=== PATIENT | female | born 1965 | race Caucasian/White ===

== ENCOUNTER → 2018-03-09 14:39 | Outpatient (CLI) | payer OTHER, SELFPAY ==
--- NOTE | 2018-03-09 15:16 | BI_ITS ---
MAMMOGRAPHY - BILATERAL SCREENING 3-D ROSIE SYNTHESIS REASON FOR EXAM: Female, 53 years old. Bilateral Screening 3-D tomosynthesis PERTINENT HISTORY: Asymptomatic. No significant family history. TECHNIQUE: 2-D mammograms and 3-D Rosie synthesis of the breast (s) were performed. CAD was performed. COMPARISON: 02/06/2017, 03/14/2015. FINDINGS: The breast composition is heterogeneously dense that can obscure small breast masses. Scattered benign calcifications are seen. No dense spiculated dominant masses or suspicious microcalcification cluster are identified. No new architectural distortion, asymmetric density, adenopathy, skin thickening or nipple retraction identified. There has been no significant change since the most recent prior study identified. BI/SCREENING MAMM (CAD), BILAT IMPRESSION: No mammographic sign of malignancy. Routine yearly mammograms recommended. ASSESSMENT CATEGORY: BIRADS Category 2: Benign. A letter regarding these results will be sent to the patient by the facility within 30 days. FOLLOW UP RECOMMENDATION: Yearly follow up mammogram recommended. (A) Any palpable lesion if present should be followed based on clinical grounds and biopsy performed if clinically persistent for 3 months or increasing size. Approximately 10% of breast cancers are not detected by mammography. A normal mammogram should not delay biopsy of a clinically suspicious abnormality. Dense breast tissue may obscure neoplasm. Electronically Signed: Miguel A Sultana, at 17:31 EDT Tel , Service support ,
== END ==
PROVIDERS: Visit Provider Obstetrics & Gynecology
DX: Z12.31 Encounter for screening mammogram for malignant neoplasm of breast (principal)
CPT/HCPCS: 77063; 77067

== ENCOUNTER → 2018-04-20 07:55 | Outpatient (CLI) | payer OTHER, SELFPAY ==
[2018-04-19 14:29] VITALS: BMI 34.4
[2018-04-20 08:44] LABS: Absolute Lymphocyte Count 2.15 X10^3/ul (0.83-4.51); Absolute Neutrophil Count 5.1 X10^3/uL (2.0-7.7); Basophil# 0.04 X10^3/uL; Basophil% 0.5 % (0-1); Eosinophil# 0.31 X10^3/uL; Eosinophils% 3.9 % (0-5); Hematocrit 44.9 % (37-47); Hemoglobin 15.2 g/dl (12.0-15.0); Lymphocyte # 2.15 X10^3/ul (4.0); Lymphocyte % 26.7 % (19-41); Mean Corp Hgb Conc 33.9 g/gl (32-36); Mean Corpuscular Hgb 31.5 pg (27.0-32.0); Mean Platelet Vol. 11.3 fl (6.2-12.0); Neutrophil # 5.14 X10^3/uL (2.7-7.7); Neutrophil % 63.8 % (47-70); Platelet Count 264 K/mm3 (150-450); RBC Distribution Width CV 13.1 % (11.6-14.6); RBC Distribution Width SD 44.6 fl (35.1-43.9); Red Blood Count 4.83 M/mm3 (4.2-5.4); White Blood Count 8.1 K/mm3 (4.4-11.0)
[2018-04-20 08:49] LABS: POSITIVE COUNT NO; POSITIVE DIFFERENTIAL NO; POSITIVE MORPHOLOGY NO
[2018-04-20 09:11] LABS: ALB/GLOB Ratio 1.1 RATIO (0.9-2.4); AST(SGOT) 19 U/L (15-37); Alanine Aminotransfer ALT/SGPT 32 U/L (13-56); Alkaline Phosphatase 100 U/L (45-117); Anion Gap 11 (5-15); BUN 14 mg/dL (7-18); BUN/Creat Ratio 20.2 RATIO (10-20); Calcium,Total 9.1 mg/dL (8.5-10.1); Chloride 105 mmol/L (98-107); Cholesterol 195 mg/dL (200); Creatinine, Serum 0.69 mg/dL (0.55-1.02); EST Glomerular Filtration Rate 93 mL/min (>60); Est Glom Filt Rate - Afr Amer 113 mL/min (>60); Globulin 3.8 g/dL (2.2-4.2); Glucose 102 mg/dL (74-106); High Density Lipoprotein 60 mg/dL; Potassium 3.8 mmol/L (3.5-5.1); Protein, Total 7.8 g/dL (6.4-8.2); Sodium Level 140 mmol/L (136-145); Thyroid Stim Hormone (TSH) 1.41 uIU/mL (0.358-3.74); Triglycerides 93 mg/dL; Very Low Density Lipoprotein 19 mg/dL (5-40)
== END ==
PROVIDERS: Family Provider Internal Medicine; PCP Internal Medicine; Referring Provider Internal Medicine; Visit Provider Internal Medicine
DX: I10 Essential (primary) hypertension (principal)
CPT/HCPCS: 36415; 80053; 80061; 84443; 85025

== ENCOUNTER → 2019-03-28 08:39 | Outpatient (CLI) | payer OTHER, SELFPAY ==
[2018-07-19 08:32] VITALS: BMI 34.4
--- NOTE | 2019-03-28 08:44 | BI_ITS ---
MAMMOGRAPHY - BILATERAL SCREENING REASON FOR EXAM: Female, 54 years old. Routine annual screening examination. PERTINENT HISTORY: Non-contributory. TECHNIQUE: Digital bilateral breast rosie (3D mammographic acquisition) in the CC and MLO projections. 2-D mediolateral oblique (MLO) and craniocaudad (CC) views of both breasts were obtained. CAD: Full Field Digital Mammography with Computer Added Detection was performed. COMPARISON: Comparison is made with prior study dated March 09, 2018 and February 06, 2017. FINDINGS: Breast Composition: The breasts are heterogeneously dense, which may obscure small masses. There are no dominant masses or suspicious calcifications. Stable benign-appearing bilateral axillary lymph nodes. No other significant abnormalities are identified. There has been no significant change since the prior study. BI/SCREEN MAMM (CAD) W/ROSIE BILAT IMPRESSION: Stable bilateral screening mammogram. Yearly follow-up mammogram recommended. (A) ASSESSMENT CATEGORY: BIRADS Category 2: Benign. A letter regarding these results will be sent to the patient by the facility within 30 days. Approximately 10% of breast cancers are not detected by mammography. A normal mammogram should not delay biopsy of a clinically suspicious abnormality. [id number] Electronically Signed: Mykel Sepulveda, at 10:24 EDT , Service support ,
== END ==
PROVIDERS: Family Provider Internal Medicine; PCP Internal Medicine; Referring Provider Obstetrics & Gynecology; Visit Provider Obstetrics & Gynecology
DX: Z12.31 Encounter for screening mammogram for malignant neoplasm of breast (principal)
CPT/HCPCS: 77063; 77067

== ENCOUNTER → 2020-03-29 12:42 | Outpatient (CLI) | payer OTHER, SELFPAY ==
[2019-03-28 10:07] VITALS: BMI 34.4
--- NOTE | 2020-03-29 12:43 | BI_ITS ---
MAMMOGRAPHY - BILATERAL SCREENING REASON FOR EXAM: Female, 55 years old. Routine annual screening examination. PERTINENT HISTORY: Non-contributory. TECHNIQUE: Digital bilateral breast rosie (3D mammographic acquisition) in the CC and MLO projections. 2-D mediolateral oblique (MLO) and craniocaudad (CC) views of both breasts were obtained. CAD: Full Field Digital Mammography with Computer Added Detection was performed. COMPARISON: Comparison is made with prior study dated 03/28/2019 and 03/09/2018. FINDINGS: Breast Composition: The breasts are heterogeneously dense, which may obscure small masses. There are no dominant masses or suspicious calcifications. Stable small benign-appearing bilateral axillary lymph nodes. No other significant abnormalities are identified. There has been no significant change since the prior study. BI/SCREEN MAMM (CAD) W/ROSIE BILAT IMPRESSION: Stable bilateral screening mammogram. Yearly follow-up mammogram recommended. (A) ASSESSMENT CATEGORY: BIRADS Category 2: Benign. A letter regarding these results will be sent to the patient by the facility within 30 days. Approximately 10% of breast cancers are not detected by mammography. A normal mammogram should not delay biopsy of a clinically suspicious abnormality. [id number] Electronically Signed: Mykel Sepulveda, at 14:07 EDT , Service support ,
== END ==
PROVIDERS: PCP Internal Medicine; Referring Provider Obstetrics & Gynecology; Visit Provider Obstetrics & Gynecology
DX: Z12.31 Encounter for screening mammogram for malignant neoplasm of breast (principal)
CPT/HCPCS: 77063; 77067

== ENCOUNTER → 2021-04-01 08:05 | Outpatient (CLI) | payer BC, SELFPAY ==
[2020-03-29 13:11] VITALS: BMI 32.0
--- NOTE | 2021-04-01 08:10 | BI_ITS ---
MAMMOGRAPHY - BILATERAL SCREENING REASON FOR EXAM: Female, 56 years old. Routine annual screening examination. PERTINENT HISTORY: Non-contributory. TECHNIQUE: Digital bilateral breast rosie (3D mammographic acquisition) in the CC and MLO projections. 2-D mediolateral oblique (MLO) and craniocaudad (CC) views of both breasts were obtained. CAD: Full Field Digital Mammography with Computer Added Detection was performed. COMPARISON: Comparison is made with prior study dated 03/29/2020 and 03/28/2019. FINDINGS: Breast Composition: The breasts are heterogeneously dense, which may obscure small masses. There are no dominant masses or suspicious calcifications. Stable benign-appearing bilateral axillary No other significant abnormalities are identified. There has been no significant change since the prior study. BI/SCRN MAMM (CAD)W/ROSIE BILAT IMPRESSION: Stable bilateral screening mammogram. Yearly follow-up mammogram recommended. (A) ASSESSMENT CATEGORY: BIRADS Category 2: Benign. A letter regarding these results will be sent to the patient by the facility within 30 days. Approximately 10% of breast cancers are not detected by mammography. A normal mammogram should not delay biopsy of a clinically suspicious abnormality. [id number] Electronically Signed: Mykel Sepulveda MD at 9:10 EDT , Service support ,
[2021-04-04 16:03] LABS: HPV APTIMA, High Risk Negative (Negative)
== END ==
PROVIDERS: PCP Internal Medicine; Referring Provider Obstetrics & Gynecology; Visit Provider Obstetrics & Gynecology
DX: Z12.31 Encounter for screening mammogram for malignant neoplasm of breast (principal); Z78.0 Asymptomatic menopausal state
CPT/HCPCS: 77063; 77067; 87624; 88175; G0145

== ENCOUNTER → 2022-03-21 | Outpatient (CLI) | payer BC, SELFPAY ==
[2022-03-21 12:25] LABS: Absolute Neutrophil Count 4.5 X10^3/uL (2.0-7.7); Basophil# 0.04 X10^3/uL; Basophil% 0.5 % (0-1); Eosinophil# 0.28 X10^3/uL; Eosinophils% 3.7 % (0-5); Hematocrit 46.2 % (37-47); Hemoglobin 15.2 g/dL (12.0-15.0); Lymphocyte % 29.1 % (19-41); Mean Corp Hgb Conc 32.9 g/dL (32-36); Mean Corpuscular Hgb 30.7 pg (27.0-32.0); Mean Corpuscular Volume 93.3 fL (81-99); Mean Platelet Vol. 11.6 fl (6.2-12.0); Monocyte# 0.55 X10^3/uL; Monocyte% 7.3 % (0-10); NRBC Flagged by Analyzer 0 % (0-5); Neutrophil # 4.48 X10^3/uL (2.7-7.7); Neutrophil % 59.1 % (47-70); Platelet Count 288 K/mm3 (150-450); RBC Distribution Width CV 12.4 % (11.6-14.6); RBC Distribution Width SD 42.8 fl (35.1-43.9); Red Blood Count 4.95 M/mm3 (4.2-5.4); White Blood Count 7.6 K/mm3 (4.4-11.0)
[2022-03-21 12:54] LABS: Hemoglobin A1c 5.4 % (3.8-5.6)
[2022-03-21 13:08] LABS: AST(SGOT) 21 U/L (15-37); Alanine Aminotransfer ALT/SGPT 34 U/L (13-56); Albumin, Serum 4.1 g/dL (3.2-5.0); Alkaline Phosphatase 105 U/L (45-117); Anion Gap 6 (5-15); BUN 19 mg/dL (7-18); BUN/Creat Ratio 22.5 RATIO (10-20); Calcium,Total 9.3 mg/dL (8.5-10.1); Chloride 105 mmol/L (98-107); Cholesterol 241 mg/dL (200); Creatinine, Serum 0.84 mg/dL (0.55-1.02); EST Glomerular Filtration Rate 73 mL/min (>60); Est Glom Filt Rate - Afr Amer 89 mL/min (>60); Glucose 101 mg/dL (74-106); High Density Lipoprotein 79 mg/dL; Potassium 4.4 mmol/L (3.5-5.1); Protein, Total 8.1 g/dL (6.4-8.2); Sodium Level 138 mmol/L (136-145); Thyroid Stim Hormone (TSH) 1.16 uIU/mL (0.358-3.74); Triglycerides 71 mg/dL; Very Low Density Lipoprotein 14 mg/dL (5-40)
[2022-03-21 13:16] LABS: Vitamin D,25 Hydroxy 28.7 ng/mL
== END | disposition home or self-care (01) ==
LOC: BIMLAB 09:17
PROVIDERS: PCP Internal Medicine; Referring Provider Nurse Practitioner Family; Visit Provider Nurse Practitioner Family
DX: I10 Essential (primary) hypertension (principal); E56.9 Vitamin deficiency, unspecified; R73.09 Other abnormal glucose
CPT/HCPCS: 36415; 80053; 80061; 82306; 83036; 84443; 85025

== ENCOUNTER → 2022-04-11 | Outpatient (CLI) | payer BC, SELFPAY ==
[2022-04-11 12:04] LABS: Anion Gap 9 (5-15); BUN 20 mg/dL (7-18); BUN/Creat Ratio 27.9 RATIO (10-20); Calcium,Total 9.6 mg/dL (8.5-10.1); Chloride 103 mmol/L (98-107); Creatinine, Serum 0.72 mg/dL (0.55-1.02); EST Glomerular Filtration Rate 89 mL/min (>60); Est Glom Filt Rate - Afr Amer 107 mL/min (>60); Glucose 109 mg/dL (74-106); Potassium 3.9 mmol/L (3.5-5.1); Sodium Level 138 mmol/L (136-145)
== END | disposition home or self-care (01) ==
LOC: BIMLAB 10:00
PROVIDERS: PCP Internal Medicine; Referring Provider Nurse Practitioner Family; Visit Provider Nurse Practitioner Family
DX: I10 Essential (primary) hypertension (principal)
CPT/HCPCS: 36415; 80048

== ENCOUNTER → 2022-04-14 | Outpatient (CLI) | payer BC, SELFPAY ==
--- NOTE | 2022-04-14 07:36 | BI_ITS ---
MAMMOGRAPHY - BILATERAL SCREENING REASON FOR EXAM: Female, 57 years old. Routine annual screening examination. PERTINENT HISTORY: Non-contributory. TECHNIQUE: Digital bilateral breast rosie (3D mammographic acquisition) in the CC and MLO projections. 2-D mediolateral oblique (MLO) and craniocaudad (CC) views of both breasts were obtained. CAD: Full Field Digital Mammography with Computer Added Detection was performed. COMPARISON: Comparison is made with prior study dated 04/01/2021 and 03/29/2012. FINDINGS: Breast Composition: The breasts are heterogeneously dense, which may obscure small masses. There are no dominant masses or suspicious calcifications. Stable small benign appearing bilateral axillary No other significant abnormalities are identified. There has been no significant change since the prior study. BI/SCRN MAMM (CAD)W/ROSIE BILAT IMPRESSION: Stable bilateral screening mammogram. Yearly follow-up mammogram recommended. (A) ASSESSMENT CATEGORY: BIRADS Category 2: Benign. A letter regarding these results will be sent to the patient by the facility within 30 days. Approximately 10% of breast cancers are not detected by mammography. A normal mammogram should not delay biopsy of a clinically suspicious abnormality. [id number] Electronically Signed: Mykel Sepulveda MD at 9:45 EST ,
== END | disposition home or self-care (01) ==
LOC: OPBI 07:35
PROVIDERS: PCP Internal Medicine; Visit Provider Obstetrics & Gynecology
DX: Z12.31 Encounter for screening mammogram for malignant neoplasm of breast (principal)
CPT/HCPCS: 77063; 77067

== ENCOUNTER → 2022-09-02 | Outpatient (CLI) | payer BC, SELFPAY ==
--- NOTE | 2022-09-02 14:35 | RAD_ITS ---
ACR Level 3 findings have been noted. An addendum which confirms receipt of the report will follow. STUDY: X-RAY - UNILATERAL RIBS ( LEFT ) WITH CHEST REASON FOR EXAM: Female, 57 years old. Fall, left rib pain, cough TECHNIQUE - RIBS: 4 view(s) of the ribs. TECHNIQUE - CHEST: PA and lateral views of the chest. COMPARISON: None. FINDINGS - RIBS: There are acute appearing posteriorly located left RIBS 7 and a fracture. FINDINGS - CHEST: There is Visualized left lower lobe atelectasis. There is no demonstrated pleural abnormality. Normal size heart. Normal mediastinum and alexandra. Normal visualized pulmonary arteries. Normal visualized aortic arch and descending thoracic aorta. There are mild degenerative changes of the visualized thoracic spine. Normal visualized ribs, clavicles, and shoulders. There is no demonstrated abnormality of the visualized soft tissue structures of the upper abdomen. RAD/Ribs Uni Min 3V w/PA Chest IMPRESSION: RIBS: Minimally displaced fractures of the posterior left ribs 7 and 8. CHEST: There is minimal left lower lobe atelectasis. Electronically Signed: Ely Epperson MD at 5:38 EDT Reading Location ID and State: [facility] / [facility] / [place] Tel , Service support ,
== END | disposition home or self-care (01) ==
LOC: MTRAD 14:33
PROVIDERS: PCP Internal Medicine; Referring Provider Nurse Practitioner Family; Visit Provider Nurse Practitioner Family
DX: R07.81 Pleurodynia (principal); R05.9 Cough, unspecified
CPT/HCPCS: 71101

== ENCOUNTER → 2022-09-16 | Outpatient (CLI) | payer BC, SELFPAY ==
--- NOTE | 2022-09-16 08:19 | BD_ITS ---
STUDY: DUAL ENERGY X-RAY ABSORPTIOMETRY / DXA REASON FOR EXAM: Female, 57 years old. Postmenopausal TECHNIQUE: Bone Mineral Density (BMD) measurements of lumbar spine and bilateral hips were obtained. COMPARISON: None. FINDINGS: Lumbar Spine (L1-L4): g/cm2 (1.030) / T-score (0.0) / Z-score (1.3) Findings are suggestive of normal bone density with a low fracture risk. Left Femur Total: g/cm2 (0.947) / T-score (0.0) / Z-score (1.0) Left Femoral Neck: g/cm2 (0.796) / T-score (-0.5) / Z-score (0.8) Right Femur Total: g/cm2 (0.982) / T-score (0.3) / Z-score (1.3) Right Femoral Neck: g/cm2 (0.804) / T-score (-0.4) / Z-score (0.9) BD/Dexa Bone Density Study IMPRESSION: The patient is considered normal as outlined below according to World Terry Organization (WHO) criteria with a low fracture risk. Reference Information: The T-score is the number of standard deviations above or below the standard which is normal for young adults at their peak bone mineral density. The World Health Organization (WHO) interprets the T-scores as follows: Above -1 Normal bone density Between -1 and -2.5 Osteopenia Equal to / or below -2.5 Osteoporosis As a practical clinical guideline, osteopenia may be graded as follows: Mild -1 through -1.5 Moderate -1.6 through -2.0 Severe -2.1 through -2.4 The Z-score is the number of standard deviations above or below age-matched controls. A Z-score of less than -1.5 would be considered abnormal. References: 1. NIH Osteoporosis and Related Bone Diseases www osteo.org 2. International Society for Clinical Densitometry www iscd.org 3. National Osteoporosis Foundation www nof.org Electronically Signed: Mykel Sepulveda MD at 13:35 EDT ,
== END | disposition home or self-care (01) ==
PROVIDERS: PCP Nurse Practitioner Family; Referring Provider Nurse Practitioner Family; Visit Provider Nurse Practitioner Family
DX: Z78.0 Asymptomatic menopausal state (principal)
CPT/HCPCS: 77080

== ENCOUNTER → 2023-04-15 | Outpatient (CLI) | payer BC, SELFPAY ==
--- NOTE | 2023-04-15 07:13 | BI_ITS ---
MAMMOGRAPHY - BILATERAL SCREENING REASON FOR EXAM: Female, 58 years old. Routine annual screening examination. PERTINENT HISTORY: Non-contributory. TECHNIQUE: Digital bilateral breast rosie (3D mammographic acquisition) in the CC and MLO projections. 2-D mediolateral oblique (MLO) and craniocaudad (CC) views of both breasts were obtained. CAD: Full Field Digital Mammography with Computer Added Detection was performed. COMPARISON: Comparison is made with prior study dated April 14, 2022 and April 01, 2021. FINDINGS: Breast Composition: The breasts are heterogeneously dense, which may obscure small masses. There are no dominant masses or suspicious calcifications. Stable benign-appearing bilateral axillary lymph nodes. No other significant abnormalities are identified. There has been no significant change since the prior study. BI/SCRN MAMM (CAD)W/ROSIE BILAT IMPRESSION: Stable bilateral screening mammogram. Yearly follow-up mammogram recommended. (A) ASSESSMENT CATEGORY: BIRADS Category 2: Benign. A letter regarding these results will be sent to the patient by the facility within 30 days. Approximately 10% of breast cancers are not detected by mammography. A normal mammogram should not delay biopsy of a clinically suspicious abnormality. [id number] Electronically Signed: Mykel Sepulveda MD at 8:23 EST ,
[2023-04-15 08:01] LABS: Absolute Lymphocyte Count 2.39 X10^3/uL (0.83-4.51); Absolute Neutrophil Count 5.1 X10^3/uL (2.0-7.7); Basophil# 0.07 X10^3/uL; Basophil% 0.8 % (0-1); Eosinophil# 0.35 X10^3/uL; Eosinophils% 4.2 % (0-5); Hematocrit 45.2 % (37-47); Hemoglobin 14.9 g/dL (12.0-15.0); Lymphocyte # 2.39 X10^3/ul (0.83-4.51); Lymphocyte % 28.5 % (19-41); Mean Corpuscular Hgb 30.9 pg (27.0-32.0); Mean Corpuscular Volume 93.8 fL (81-99); Mean Platelet Vol. 11.4 fl (6.2-12.0); Monocyte# 0.49 X10^3/uL; Monocyte% 5.8 % (0-10); NRBC Flagged by Analyzer 0 % (0-5); Neutrophil # 5.09 X10^3/uL (2.7-7.7); Neutrophil % 60.6 % (47-70); Platelet Count 285 K/mm3 (150-450); RBC Distribution Width CV 12.4 % (11.6-14.6); Red Blood Count 4.82 M/mm3 (4.2-5.4); White Blood Count 8.4 K/mm3 (4.4-11.0)
[2023-04-15 08:14] LABS: ALB/GLOB Ratio 0.9 RATIO (0.9-2.4); AST(SGOT) 25 U/L (15-37); Alanine Aminotransfer ALT/SGPT 25 U/L (13-56); Albumin, Serum 3.7 g/dL (3.2-5.0); Alkaline Phosphatase 107 U/L (45-117); Anion Gap 5 (5-15); BUN 22 mg/dL (7-18); BUN/Creat Ratio 27.2 RATIO (10-20); Calcium,Total 8.9 mg/dL (8.5-10.1); Chloride 104 mmol/L (98-107); Cholesterol 232 mg/dL (200); Creatinine, Serum 0.81 mg/dL (0.55-1.02); EST Glomerular Filtration Rate 77 mL/min (>60); Est Glom Filt Rate - Afr Amer 93 mL/min (>60); Globulin 4.1 g/dL (2.2-4.2); Glucose 111 mg/dL (74-106); High Density Lipoprotein 69 mg/dL; Potassium 3.9 mmol/L (3.5-5.1); Protein, Total 7.8 g/dL (6.4-8.2); Sodium Level 136 mmol/L (136-145); Thyroid Stim Hormone (TSH) 1.29 uIU/mL (0.358-3.74); Triglycerides 148 mg/dL; Very Low Density Lipoprotein 30 mg/dL (5-40)
== END | disposition home or self-care (01) ==
PROVIDERS: PCP Nurse Practitioner Family; Referring Provider Obstetrics & Gynecology; Visit Provider Obstetrics & Gynecology
DX: Z12.31 Encounter for screening mammogram for malignant neoplasm of breast (principal); I10 Essential (primary) hypertension
CPT/HCPCS: 36415; 77063; 77067; 80053; 80061; 84443; 85025

== ENCOUNTER → 2023-12-22 | Outpatient (CLI) | payer BC, SELFPAY ==
--- NOTE | 2023-12-22 06:49 | CT_ITS ---
STUDY: CT RIGHT SHOULDER REASON FOR EXAM: Female, 58 years old. OSTEOARTHRITIS RADIATION DOSAGE (If Supplied By Facility): CTDIvol = ( 24.78 ) mGy, DLP = ( 596.07 ) mGycm TECHNIQUE: The patient was scanned in a multi detector CT scanner. High resolution transaxial imaging was performed without the administration of intravenous contrast material. Sagittal and coronal images were reconstructed. Individualized dose optimization techniques were used for this CT. COMPARISON: None. FINDINGS: Normal glenohumeral articulation. Normal glenoid rim, neck and visualized scapula. There is mild enthesopathic subcortical cyst formation of the lesser and greater tuberosities of the humeral head. Intact humeral head, neck and tuberosities. Normal coracoid process. Normal visualized lateral clavicle. 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 There is a Type II morphology (curved), with a neutral orientation. Normal visualized muscles and soft tissue structures. CT/Extremity Upper without Contra IMPRESSION: Mild acromioclavicular arthrosis. Electronically Signed: Leonard Hoover MD at 8:09 EDT ,
== END | disposition home or self-care (01) ==
PROVIDERS: PCP Nurse Practitioner Family; Referring Provider Student in an Organized Health Care Education/Training Program; Visit Provider Student in an Organized Health Care Education/Training Program
DX: S46.011A Strain of muscle(s) and tendon(s) of the rotator cuff of right shoulder, initial encounter (principal); M19.011 Primary osteoarthritis, right shoulder; X58.XXXA Exposure to other specified factors, initial encounter
CPT/HCPCS: 73200

== ENCOUNTER → 2023-12-23 | Outpatient (CLI) | payer BC, SELFPAY ==
[2023-12-23 13:05] LABS: Absolute Lymphocyte Count 1.99 X10^3/uL (0.83-4.51); Absolute Neutrophil Count 4.5 X10^3/uL (2.0-7.7); Basophil# 0.05 X10^3/uL; Basophil% 0.7 % (0-1); Eosinophil# 0.23 X10^3/uL; Eosinophils% 3.2 % (0-5); Hematocrit 42.8 % (37-47); Hemoglobin 14.2 g/dL (12.0-15.0); Lymphocyte # 1.99 X10^3/ul (0.83-4.51); Lymphocyte % 27.9 % (19-41); Mean Corp Hgb Conc 33.2 g/dL (32-36); Mean Corpuscular Volume 93.4 fL (81-99); Mean Platelet Vol. 12.1 fl (6.2-12.0); Monocyte# 0.38 X10^3/uL; Monocyte% 5.3 % (0-10); NRBC Flagged by Analyzer 0 % (0-5); Neutrophil # 4.46 X10^3/uL (2.7-7.7); Neutrophil % 62.6 % (47-70); Platelet Count 270 K/mm3 (150-450); RBC Distribution Width CV 12.8 % (11.6-14.6); RBC Distribution Width SD 43.8 fl (35.1-43.9); Red Blood Count 4.58 M/mm3 (4.2-5.4); White Blood Count 7.1 K/mm3 (4.4-11.0)
[2023-12-23 13:16] LABS: ALB/GLOB Ratio 0.9 RATIO (0.9-2.4); AST(SGOT) 31 U/L (15-37); Alanine Aminotransfer ALT/SGPT 32 U/L (13-56); Albumin, Serum 3.7 g/dL (3.2-5.0); Alkaline Phosphatase 84 U/L (45-117); Anion Gap 8 (5-15); BUN 11 mg/dL (7-18); BUN/Creat Ratio 14.8 RATIO (10-20); Calcium,Total 9.6 mg/dL (8.5-10.1); Chloride 105 mmol/L (98-107); Cholesterol 208 mg/dL (200); Creatinine, Serum 0.74 mg/dL (0.55-1.02); EST Glomerular Filtration Rate 85 mL/min (>60); Est Glom Filt Rate - Afr Amer 103 mL/min (>60); Glucose 93 mg/dL (74-106); High Density Lipoprotein 68 mg/dL; Potassium 3.7 mmol/L (3.5-5.1); Protein, Total 7.7 g/dL (6.4-8.2); Sodium Level 139 mmol/L (136-145); Thyroid Stim Hormone (TSH) 1.31 uIU/mL (0.358-3.74); Triglycerides 80 mg/dL; Very Low Density Lipoprotein 16 mg/dL (5-40)
== END | disposition home or self-care (01) ==
LOC: VSLAB 08:40
PROVIDERS: PCP Nurse Practitioner Family; Visit Provider Nurse Practitioner Family
DX: Z01.818 Encounter for other preprocedural examination (principal); E78.5 Hyperlipidemia, unspecified
CPT/HCPCS: 36415; 80053; 80061; 84443; 85025

== ENCOUNTER → 2024-04-25 | Outpatient (CLI) | payer BC, SELFPAY | END | disposition home or self-care (01) | LOC: OPBI 08:04 | PROVIDERS: PCP Nurse Practitioner Family; Referring Provider Obstetrics & Gynecology; Visit Provider Obstetrics & Gynecology | DX: Z12.31 Encounter for screening mammogram for malignant neoplasm of breast (principal) | CPT/HCPCS: 77063; 77067 ==

== ENCOUNTER → 2024-12-28 | Outpatient (CLI) | payer BC, SELFPAY ==
[2024-12-28 12:29] LABS: Color, Urine Yellow (Yellow); Glucose, Dipstick Normal (Normal); Ketone-Dipstick Negative (Negative); Leukocyte Esterase-Dipstick Negative /ul (Negative); Nitrite-Dipstick Negative (Negative); Occult Blood-Urine Negative /ul (Negative); Protein-Dipstick Negative (Negative); Specific Gravity, Urine 1.010 (1.002-1.030); Urine Bilirubin Dipstick Negative (Negative)
[2024-12-28 12:32] LABS: Hematocrit 43.3 % (37-47); Hemoglobin 14.0 g/dL (12.0-15.0); Immature Granulocytes Count 0.020 X10^3/uL (0.0-0.0); Mean Corp Hgb Conc 32.3 g/dL (32-36); Mean Corpuscular Volume 95.0 fL (81-99); Mean Platelet Vol. 11.4 fl (6.2-12.0); NRBC Flagged by Analyzer 0 % (0-5); Platelet Count 259 K/mm3 (150-450); RBC Distribution Width CV 12.6 % (11.6-14.6); RBC Distribution Width SD 44.4 fl (35.1-43.9); Red Blood Count 4.56 M/mm3 (4.2-5.4); White Blood Count 9.2 K/mm3 (4.4-11.0)
[2024-12-28 13:30] LABS: AST(SGOT) 21 U/L (<=31); Alanine Aminotransfer ALT/SGPT 17 U/L (<=34); Albumin, Serum 4.4 g/dL (3.4-4.8); Alkaline Phosphatase 91 U/L (35-104); Anion Gap 11 (5-15); BUN 8 mg/dL (4-19); BUN/Creat Ratio 12.1 RATIO (10-20); Calcium,Total 9.6 mg/dL (7.6-11.0); Carbon Dioxide 25.9 mmol/L (21.0-32.0); Chloride 102 mmol/L (98-108); Cholesterol 207 mg/dL (<=200); Globulin 3.0 g/dL (2.2-4.2); Glucose 91 mg/dL (70-99); Low Density Lipoprotein Calc. 112 mg/dL; Potassium 4.1 mmol/L (3.3-5.1); Triglycerides 63 mg/dL; Very Low Density Lipoprotein 13 mg/dL (5-40); Vitamin B12 1437 pg/mL (180-914); Vitamin D,25 Hydroxy 35.5 ng/mL (30-100); cholesterol:hdl ratio screen 2.52
--- OUTSIDE RECORDS SUMMARY | 2024-12-28 18:16 | XMS RPT_ITS | CCD ---
Author Organization [facility] Care Team Providers Care Quality Improvement Analyst Name Role Phone Petra Faust MD Unavailable [phone] Rex BAIG, Leslie S Unavailable [phone] Tanna Allen Unavailable Unavailab Dr. María Clark Primary Care Provider [phone] Dr. María Murray Referring Provider [phone] Cornelius EXTRUSION MANAGER, EXTRUSION MANAGER-C Jose Miguel Attending Provider [phone] Dr. María Murray Primary Care Provider [phone] Dr. María Murray Referring Provider [phone] Cornelius EXTRUSION MANAGER, EXTRUSION MANAGER-C Jose Miguel Attending Provider [phone] Dr. Petra Faust Attending Provider [phone] Dr. María Murray Primary Care Provider [phone] Dr. María Murray Referring Provider [phone] Meyers EXTRUSION MANAGER, EXTRUSION MANAGER-C Jose Miguel Attending Provider [phone] Meyers EXTRUSION MANAGER, EXTRUSION MANAGER-C Jose Miguel Primary Care Provider Dr. María Murray Referring Provider [phone] Dr. Petra Faust Attending Provider [phone] Meyers EXTRUSION MANAGER, EXTRUSION MANAGER-C Jose Miguel Primary Care Provider Meyers [facility], Jose Miguel Primary Care Unavailable Petra Faust Referring Unavailable Petra Faust Attending Unavailable Meyers [facility], Jose Miguel Primary Care Unavailable Mikhail Francisco Referring Unavailable Mikhail Francisco Attending Unavailable Cornelius [facility], Jose Miguel Attending Unavailable Cornelius [facility], Jose Miguel Primary Care Unavailable Jose Miguel Painter Referring Unavailable Cornelius SPANGLER, Jose Miguel Primary Care Unavailable Petra Faust Attending Unavailable Medications Current Medications Medication Drug Class(es) Dates Sig (Normalized) Sig (Original) calcium citrate 1190 mg / cholecalciferol 0.005 mg oral tablet (6 sources) Vitamin D Start: 03-29-2020 take 1 tablet by mouth three times daily calcium citrate 250 mg calcium-vitamin D3 200 unit tablet Active 1 TABLET PO THREE TIMES A DAY March 28, 2020 11:00pm multivitamin capsule (6 sources) Start: 04-19-2018 take 1 capsule by mouth once daily multivitamin capsule Active 1 CAP PO DAILY April 19, 2018 12:00am Start: 04-19-2018 take 1 capsule by mo uth once daily multivitamin capsule Active 1 CAP PO DAILY April 19, 2018 1:00am traMADol hydrochloride 50 mg oral tablet (3 sources) Opioid Agonist Start: 09-05-2022 take 50 mg by mouth every eight hours Tramadol Active 50 MG PO Q8H September 04, 2022 11:00pm 24 hr venlafaxine 75 mg extended release oral capsule (15 sources) Serotonin and Norepinephrine Reuptake Inhibitor Start: 01-21-2023 take 1 capsule by mouth at bedtime Venlafaxine Active 0 .ROUTE .COMPLEX January 21, 2023 4:04pm Take 1 capsule by mouth at bedtime Start: 04-30-2022 End: 01-21-2023 take 75 mg by mouth at bedtime Venlafaxine Discontinue d 75 MG PO AT BEDTIME April 30, 2022 10:27am January 21, 2023 4:05pm Start: 03-19-2022 End: 04-30-2022 take 37.5 mg by mouth at bedtime Venlafaxine Discontinued 37.5 MG PO AT BEDTIME April 14, 2022 9:23am April 30, 2022 10:28am Completed/Discontinued Medications Medication Drug Class(es) Dates Sig (Normalized) Sig (Original) azithromycin 250 mg oral tablet (3 sources) Macrolide Antimicrobial Start: 09-05-2022 End: 09-11-2022 Azithromycin Discontinued 0 PO .COMPLEX September 04, 2022 11:00pm September 11, 2022 2:27pm Take two tablets by mouth on day one then one tablet by mouth on days 2-5 calcium ascorbate 500 mg oral tablet (6 sources) Start: 04-19-2018 End: 03-28-2019 take 1 tablet by mouth once daily ascorbate calcium 500 mg tablet Discontinued 500 MG PO DAILY April 19, 2018 12:00am March 28, 2019 8:47am Carboxymethylcellul ose-Citric (Plenity) 0.75 gram capsule (3 sources) Start: 04-30-2022 End: 04-16-2023 Carboxymethylcellu lose-Citric (Plenity) 0.75 gram capsule Discontinued 3 CAP PO TWICE A DAY 540 April 30, 2022 12:00am April 16, 2023 8:27am administer before lunch and evening meal/dinner Start: 04-30-2022 Carboxymethylc ellulose-Citric (Plenity) 0.75 gram capsule Active 3 CAP PO TWICE A DAY 540 April 30, 2022 1:00am administer before lunch and evening meal/dinner cetirizine hydrochloride 10 mg oral tablet (6 sources) Histamine-1 Receptor Antagonist Start: 03-09-2018 End: 03-29-2020 take 1 tablet by mouth once daily Cetirizine (Zyrtec) 10 mg tablet Discontinued 10 MG PO DAILY March 08, 2018 11:00pm March 29, 2020 12:11pm 84 hr estradiol 0.89785 mg/hr / norethindrone acetate 0.0104 mg/hr transdermal system (12 sources) Estrogen Start: 03-28-2019 End: 03-01-2020 Estradiol-Norethin drone Acet (Combipatch) 0.05-0.25 mg/24 hr patch semiweekly Discontinued 1 PATCH TD TWICE A WEEK 8 March 27, 2019 11:00pm March 01, 2020 10:27am apply 1 patch every 3 days alternating with 1 patch every 4 days for 14 days of a 28-day cycle Start: 03-09-2018 End: 12-08-2018 Estradiol-Norethindrone Acet (Combipatch) 0.05-0.14 mg/24 hr patch semiweekly Discontinued 1 PATCH TD Q3D 30 March 08, 2018 11:00pm December 07, 2018 11:07pm estrogens, conjugated (mcfp) 0.3 mg / medroxyPROGESTERone acetate 1.5 mg oral tablet (20 sources) Progestin, Estrogen Start: 03-01-2020 End: 03-12-2023 take 0.3-1.5 mg by mouth once daily Conj Estrog-Medroxyprogest Arnie (Prempro) 0.3-1.5 mg tablet Discontinued 1 TABLET PO DAILY March 11, 2022 3:55pm April 14, 2022 9:23am hydroCHLOROthiazide 12.5 mg oral tablet (11 sources) Thiazide Diuretic Start: 03-19-2022 End: 09-11-2022 take 12.5 mg by mouth once daily in the morning Hydrochlorothiazide Discontinued 12.5 MG PO EVERY MORNING April 30, 2022 10:27am September 11, 2022 2:45pm melatonin 5 mg oral capsule (6 sources) Start: 03-29-2020 End: 03-19-2022 Melatonin Discontinued MG PO March 28, 2020 11:00pm March 19, 2022 2:11pm methylPREDNISolone 4 mg oral tablet (3 sources) Corticosteroid Start: 09-05-2022 End: 09-11-2022 take 1 tablet by mouth once Methylprednisolone (Medrol (Niraj)) 4 mg tablets,dose pack Discontinued 0 PO per package directions September 04, 2022 11:00pm September 11, 2022 2:27pm PO PER PKG DIR MULTIPLE VITAMINS-MINERALS (4 sources) Start: 01-29-2017 MULTIVITAMIN WOMEN 50+ TABS MULTIPLE VITAMINS-MINERALS [id number] Petra Faust MD Drug Treatment Unknown - unknown (1 source) No information available. 72 hr scopolamine 0.0139 mg/hr transdermal system (6 sources) Anticholinergic Start: 07-19-2018 End: 03-29-2020 Scopolamine Base Discontinued 1 PATCH TD Q3D July 19, 2018 12:00am March 29, 2020 12:11pm traZODone hydrochloride 100 mg oral tablet (6 sources) Serotonin Reuptake Inhibitor Start: 03-28-2019 End: 03-29-2020 take 50 mg by mouth at bedtime Trazodone Discontinued 50 MG PO AT BEDTIME March 27, 2019 11:00pm March 29, 2020 12:11pm Problems Active Problems Problem Classification Problem Date Documented Date Episodic/Chronic Acute bronchitis (3 sources) Acute bronchitis, unspecified; Translations: [Acute bronchitis] 09-05-2022 Episodic Essential hypertension (14 sources) Hypertensive disorder; Translations: [Essential (primary) hypertension] Chronic Menopausal disorders (14 sources) Menopause present; Translations: [Menopausal syndrome] Onset: 01-29-2017 01-29-2017 Chronic Other fractures (3 sources) Fracture of one rib, left side, initial encounter for closed fracture; Translations: [Closed fracture of rib(s), unspecified] 09-05-2022 Episodic Other nutritional; endocrine; and metabolic disorders (2 sources) Obesity, unspecified; Translations: [Obesity, unspecified] 08-07-2022 Chronic Other screening for suspected conditions (not mental disorders or infectious disease) (1 source) Encounter for screening mammogram for malignant neoplasm of breast; Translations: [Encounter for screening mammogram for malignant neoplasm of breast] Onset: 05-02-2024 Episodic Other upper respiratory disease (3 sources) Seasonal allergy; Translations: [Other seasonal allergic rhinitis] 08-07-2022 Chronic Other upper respiratory disease (2 sources) Other seasonal allergic rhinitis; Translations: [Allergic rhinitis, cause unspecified] 08-07-2022 Chronic Residual codes; unclassified (1 source) Reduced libido; Translations: [Decreased libido] 04-16-2023 Episodic Residual codes; unclassified (1 source) Decreased libido; Translations: [Decreased libido] 04-16-2023 Episodic Unclassified (4 sources) Screening for malignant neoplasm of cervix ; Translations: [Encounter for screening for malignant neoplasm of cervix] Onset: 01-29-2017 01-29-2017 Unclassified (4 sources) Gynecologic examination ; Translations: [Encounter for gynecological examination (general) (routine) with abnormal findings] Onset: 01-29-2017 01-29-2017 Unclassified (1 source) No current problems or disability 01-08-2017 Past or Other Problems Problem Classification Problem Date Documented Date Episodic/Chronic Immunizations and screening for infectious disease (4 sources) Encounter for screening for human papillomavirus (HPV); Translations: [Encounter for screening for human papillomavirus (HPV)] Onset: 01-29-2017 01-29-2017 Episodic Sprains and strains (1 source) Strain of muscle(s) and tendon(s) of the rotator cuff of right shoulder, initial encounter; Translations: [Strain of muscle(s) and tendon(s) of the rotator cuff of right shoulder, initial encounter] Onset: 01-09-2024 Episodic Unclassified (6 sources) bone spur surgery 12-20-2021 Results Test Name Value Interpretation Reference Range Facility SCRN MAMM (CAD)W/ROSIE BILATo n 04-25-2024 SCRN MAMM (CAD)W/ROSIE BILAT [facility] Imaging Services [address], [place] [address] SCRN MAMM (CAD)W/ROSIE BILAT MR#: [id number] Acct: [id number] Name: FAISAL PRESLEY Rep #: [id number] : 1965 F 59 From: Chi Denny MD PCP: JHON Fontenot Status: [facility] Study: SCRN MAMM (CAD)W/ROSIE BILAT Date of Exam: 04/02 10/22 Exam# [id number] Ordering Dr: Petra Faust [id number] MAMMOGRAPHY - BILATERAL SCREENING 3-D TOMOSYNTHESIS REASON FOR EXAM: Female, 59 years old. screening PERTINENT HISTORY: No significant family history. TECHNIQUE: 2-D mammograms and 3-D Tomosynthesis of the breast (s) were performed. CAD was performed. COMPARISON: 04/15/2023 FINDINGS: The breast composition is heterogeneously dense that can obscure small breast masses. Scattered benign calcifications are seen. No dense spiculated masses or suspicious microcalcifications are identified. No architectural distortion is identified. There is no skin thickening or retraction. There has been no significant change since the prior study. BI/SCRN MAMM (CAD)W/ROSIE BILAT IMPRESSION: No mammographic signs of malignancy. Routine yearly mammograms recommended. ASSESSMENT CATEGORY: BIRADS Category 1: Negative. A letter regarding these results will be sent to the patient by the facility within 30 days. FOLLOW UP RECOMMENDATION: Yearly follow up mammogram recommended. (A) Approximately 10% of breast cancers are not detected by mammography. A normal mammogram should not delay biopsy of a clinically suspicious abnormality. Electronically Signed: Chi Denny MD at 9:11 EST , CC: JHON Meyers; Dr. Petra Faust MD Route Vending Machine Servicer: Signed Normal [facility] Food Production Associate Office Visit Reporton 04-20-2024 Food Production Associate Office Visit Report [facility] [address], [address] [place] [address] OFFICE VISIT Date of Service: 04/20/24 MR#: [id number] Acct: [id number] Name: FAISAL PRESLEY Rep #: [id number] : 1965 Provider: Dr. 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 Required: No Is patient in pain?: Yes (rotator cuff surgery end of November) Allergies No Known Allergies Allergy (Verified 04/20/24 14:04) Medications ???Medication ???Instructions ???Recorded ???Confirmed ???Type multivitamin 1 cap PO DAILY 04/19/18 04/20/24 History calcium 250 mg (as 1 tab PO TID 03/29/20 04/20/24 History citrate)-vitamin D3 5 mcg (200 unit) tablet (Citracal Regular) hydrochlorothiazide 12.5 mg tablet 12.5 mg PO QAM #90 tabs 09/11/22 04/20/24 Rx estradiol 0.01% (0.1 mg/gram) See Rx Instructions vaginal 04/20/24 04/20/24 Rx vaginal cream (Estrace) .COMPLEX #42.5 grams Is last menstrual period known: No Post menopausal: Yes Patient : No : No PFSH Medical History (Updated 04/20/24 @ 14:[address] Petra Faust MD) Rotator cuff arthropathy HTN (hypertension) Seasonal allergies Surgical History Bone spur S/P endometrial ablation bone spur surgery History of carpal tunnel surgery Family History Father Cancer thyroid Diabetes Mother COPD (chronic obstructive pulmonary disease) Grandfather Diabetes Sister Thyroid disorder Social History (Updated 04/20/24 @ 14:07 by Leslie Clements) number of children: 2 current occupational status: employed current occupation: [employer] Smoking Status: Never smoker alcohol intake: current alcohol intake frequency: a few times a month details: social substance use type: does not use caffeine: Yes what type of physical activity do you participate in: walking frequency: 5-6 times per week seatbelt use: always do you feel safe at home: Yes additional social history: 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 Date Name GA/Weeks Outcome Route Bth Weight Infant Gen Labor Lgth Anesthesia Del Locatn Provider FOB Unknown 1990 [place] Unknown 1992 [place] HPI Encounter for routine gynecological examination Details: FAISAL PRESLEY is a 59 year old who presents for annual exam. has lost 45 pounds on compounded semaglutide with jose miguel meyers. Last PAP: 04/01/2021 History of abnormal PAP: no severe Last mammogram: This coming Thursday Colon cancer screening: up to date due next eyar Other preventative health care screenings: PCP Eyad Meyers EXTRUSION MANAGER-c Female Reproductive History Questions: metorrhagia: No, sexually active: Yes, dyspareunia: No and PCB: No Menopausal Symptoms: No hot flashes, No night sweats, No weight change, No mood changes, No difficulty concentrating, No sleep problems and No change in libido ROS Const Constitutional: Reports as per HPI; Denies fatigue, increased appetite, poor appetite, night sweats, weight gain or weight loss Cardio Card: Denies chest pain Resp Resp: Denies cough or dyspnea GI GI: Reports as per HPI; Denies abdominal pain, bloating, constipation, nausea or vomiting : Reports as per HPI, vaginal dryness and other; Denies difficulty voiding, dysuria, hematuria, hot flashes, nipple discharge, pelvic pain, prolapse symptoms, urinary frequency, urinary incontinence, urinary urgency, vaginal discharge, vaginal odor or vaginal pruritus Skin Skin/Breast: Denies changing lesions, breast mass, breast pain, breast skin changes or nipple discharge Psych Psych: Denies anxiety, change in libido, depression or difficulty concentrating Exam Const General: cooperative, healthy appearing, comfortable, no acute distress, well developed and well groomed [facility] Head: normal to inspection and normocephalic Ears: hearing grossly normal bilaterally and external ears normal Nose: external nose normal Face and sinus: normal facial exam Neck Neck: normal visual inspection, full ROM and no lymphadenopathy Thyroid: thyroid normal Chest Chest palpation inspection: normal inspection of the chest Breast inspection: normal inspection of the breasts and normal inspection of the axillae Breast palpation: normal palpation of the breasts, normal palpation of the axillae and no axillary l (more content not included)... Normal [facility] CBC W/Diff, Automatedon 07-2 Absolute Lymph 1.99 X10 3/uL Normal 0.83-4.51 [facility] Comment on above: Performed By: #### L 501.9520, L100.0100, L500.4050, L500.4100 #### [facility] [address] [place], [address] Absolute Neut 4.5 X10 3/uL Normal 2.0-7.7 [facility] Comment on above: Performed By: #### L 501.9520, L100.0100, L500.4050, L500.4100 #### [facility] [address] [place], [address] Basophils/100 WBC (Bld) 0.7 % Normal 0-1 [facility] Comment on above: Performed By: #### L 501.9520, L100.0100, L500.4050, L500.4100 #### [facility] [address] [place], [address] Eosinophils/100 WBC (Bld) 3.2 % Normal 0-5 [facility] Comment on above: Performed By: #### L 501.9520, L100.0100, L500.4050, L500.4100 #### [facility] [address] [place], [address] Erythrocyte distribution width (RBC) [Ratio] 12.8 % Normal 11.6-14.6 [facility] Comment on above: Performed By: #### L 501.9520, L100.0100, L500.4050, L500.4100 #### [facility] [address] [place], [address] Hematocrit (Bld) [Volume fraction] 42.8 % Normal 37-47 [facility] Comment on above: Performed By: #### L 501.9520, L100.0100, L500.4050, L500.4100 #### [facility] [address] [place], [address] Hemoglobin (Bld) [Mass/Vol] 14.2 g/dL Normal 12.0-15.0 [facility] Comment on above: Performed By: #### L 501.9520, L100.0100, L500.4050, L500.4100 #### [facility] [address] [place], [address] IG% 0.300 Normal 0.0-0.9 [facility] Comment on above: Result Comment: IG% - Immature Granulocytes (promyelocytes, myelocytes and metamyelocytes) > 1% indicates that a LEFT SHIFT is Present. Performed By: #### L 501.9520, L100.0100, L500.4050, L500.4100 #### [facility] [address] [place], [address] Lymphocytes/100 WBC (Bld) 27.9 % Normal 19-41 [facility] Comment on above: Performed By: #### L 501.9520, L100.0100, L500.4050, L500.4100 #### [facility] [address] [place], [address] MCH (RBC) [Entitic mass] 31.0 pg Normal 27.0-32.0 [facility] Comment on above: Performed By: #### L 501.9520, L100.0100, L500.4050, L500.4100 #### [facility] [address] [place], [address] MCHC (RBC) [Mass/Vol] 33.2 g/dL Normal 32-36 [facility] Comment on above: Performed By: #### L 501.9520, L100.0100, L500.4050, L500.4100 #### [facility] [address] [place], [address] MCV (RBC) [Entitic vol] 93.4 fL Normal 81-99 [facility] Comment on above: Performed By: #### L 501.9520, L100.0100, L500.4050, L500.4100 #### [facility] [address] [place], [address] Monocytes/100 WBC (Bld) 5.3 % Normal 0-10 [facility] Comment on above: Performed By: #### L 501.9520, L100.0100, L500.4050, L500.4100 #### [facility] [address] [place], [address] Neutrophils/100 WBC (Bld) 62.6 % Normal 47-70 [facility] Comment on above: Performed By: #### L 501.9520, L100.0100, L500.4050, L500.4100 #### [facility] [address] [place], [address] Nucleated RBC (Bld) [#/Vol] 0 10*3/uL Normal 0-5 [facility] Comment on above: Performed By: #### L 501.9520, L100.0100, L500.4050, L500.4100 #### [facility] [address] [place], [address] Platelet mean volume (Bld) [Entitic vol] 12.1 fL High 6.2-12.0 [facility] Comment on above: Performed By: #### L 501.9520, L100.0100, L500.4050, L500.4100 #### [facility] [address] [place], [address] Platelets (Bld) [#/Vol] 270 10*3/uL Normal 150-450 [facility] Comment on above: Performed By: #### L 501.9520, L100.0100, L500.4050, L500.4100 #### [facility] [address] [place], [address] RBC (Bld) [#/Vol] 4.58 10*6/uL Normal 4.2-5.4 [facility] Comment on above: Performed By: #### L 501.9520, L100.0100, L500.4050, L500.4100 #### [facility] [address] [place], [address] RDW SD 43.8 fl Normal 35.1-43.9 [facility] Comment on above: Performed By: #### L 501.9520, L100.0100, L500.4050, L500.4100 #### [facility] [address] [place], [address] WBC (Bld) [#/Vol] 7.1 10*3/uL Normal 4.4-11.0 [facility] Comment on above: Performed By: #### L 501.9520, L100.0100, L500.4050, L500.4100 #### [facility] [address] [place], [address] Comprehensive Metabolic Prof ilon 12-23-2023 Albumin [Mass/Vol] 3.7 g/dL Normal 3.2-5.0 [facility] Comment on above: Performed By: #### L 501.9520, L100.0100, L500.4050, L500.4100 #### [facility] [address] [place], [address] Albumin/Globulin [Mass ratio] 0.9 {ratio} Normal 0.9-2.4 [facility] Comment on above: Performed By: #### L 501.9520, L100.0100, L500.4050, L500.4100 #### [facility] [address] [place], [address] ALK P 84 U/L Normal 45-117 [facility] Comment on above: Performed By: #### L 501.9520, L100.0100, L500.4050, L500.4100 #### [facility] [address] [place], [address] ALT [Catalytic activity/Vol] 32 U/L Normal 13-56 [facility] Comment on above: Performed By: #### L 501.9520, L100.0100, L500.4050, L500.4100 #### [facility] [address] [place], [address] AST [Catalytic activity/Vol] 31 U/L Normal 15-37 [facility] Comment on above: Result Comment: Slig ht Hemolysis, Result may be falsely increased. Performed By: #### L 501.9520, L100.0100, L500.4050, L500.4100 #### [facility] [address] [place], [address] Bilirubin [Mass/Vol] 0.60 mg/dL Normal 0.20-1.00 [facility] Comment on above: Result Comment: For patients on eltrombopag therapy, use of Dimension Jackson TBIL is not recommended. Performed By: #### L 501.9520, L100.0100, L500.4050, L500.4100 #### [facility] [address] [place], [address] BUN/CRE 14.8 RATIO Normal 10-20 [facility] Comment on above: Performed By: #### L 501.9520, L100.0100, L500.4050, L500.4100 #### [facility] [address] [place], [address] CA,Total 9.6 mg/dL Normal 8.5-10.1 [facility] Comment on above: Performed By: #### L 501.9520, L100.0100, L500.4050, L500.4100 #### [facility] [address] [place], [address] Chloride [Moles/Vol] 105 mmol/L Normal 98-107 [facility] Comment on above: Performed By: #### L 501.9520, L100.0100, L500.4050, L500.4100 #### [facility] [address] [place], [address] CO2 [Moles/Vol] 26.0 mmol/L Normal 21.0-32.0 [facility] Comment on above: Performed By: #### L 501.9520, L100.0100, L500.4050, L500.4100 #### [facility] [address] [place], [address] Creatinine [Mass/Vol] 0.74 mg/dL Normal 0.55-1.02 [facility] Comment on above: Result Comment: The validity of the calculated GFR GFRAA in patients over 70 years has not been determined. Clinical correlation is essential. Performed By: #### L 501.9520, L100.0100, L500.4050, L500.4100 #### [facility] [address] [place] [place], [address] EST GFR - AA 103 mL/min Normal >60 [facility] Comment on above: Result Comment: Afri can Irish GFR Calc Performed By: #### L 501.9520, L100.0100, L500.4050, L500.4100 #### [facility] [facility] [address] [place], [address] GAP 8 Normal 5-15 [facility] Comment on above: Performed By: #### L 501.9520, L100.0100, L500.4050, L500.4100 #### [facility] [address] [place], [address] GFR/1.73 sq M.predicted among non-blacks MDRD (S/P/Bld) [Vol rate/Area] 85 mL/min/{1.73_m2} Normal >60 [facility] Comment on above: Result Comment: Non- GFR Calc Performed By: #### L 501.9520, L100.0100, L500.4050, L500.4100 #### [facility] [address] [place], [address] Globulin (S) [Mass/Vol] 4.0 g/dL Normal 2.2-4.2 [facility] Comment on above: Performed By: #### L 501.9520, L100.0100, L500.4050, L500.4100 #### [facility] [address] [place], [address] Glucose [Mass/Vol] 93 mg/dL Normal 74-106 [facility] Comment on above: Performed By: #### L 501.9520, L100.0100, L500.4050, L500.4100 #### [facility] [address] [place] [place], [address] Potassium [Moles/Vol] 3.7 mmol/L Normal 3.5-5.1 [facility] Comment on above: Result Comment: Slig ht Hemolysis, Result may be falsely increased. Performed By: #### L 501.9520, L100.0100, L500.4050, L500.4100 #### [facility] [address] [place], [address] Sodium [Moles/Vol] 139 mmol/L Normal 136-145 [facility] Comment on above: Performed By: #### L 501.9520, L100.0100, L500.4050, L500.4100 #### [facility] [address] [place], [address] T PROT 7.7 g/dL Normal 6.4-8.2 [facility] Comment on above: Performed By: #### L 501.9520, L100.0100, L500.4050, L500.4100 #### [facility] [address] [place], [address] Urea nitrogen [Mass/Vol] 11 mg/dL Normal 7-18 [facility] Comment on above: Performed By: #### L 501.9520, L100.0100, L500.4050, L500.4100 #### [facility] [address] [place], [address] Lipid Profileon 12-23-2023 Cholesterol [Mass/Vol] 208 mg/dL High 200 [facility] Comment on above: Result Comment: <200 mg/dL Desirable 200-240 mg/dL Borderline >240 mg/dL High Risk Performed By: #### L 501.9520, L100.0100, L500.4050, L500.4100 #### [facility] [address] [place], [address] Cholesterol in HDL [Mass/Vol] 68 mg/dL Normal [facility] Comment on above: Result Comment: The drugs N-Acetylcysteine and Metamizole may falsely depress this assay. Reference Range HDL <40 mg/dL Low HDL Cholesterol HDL >or= 60 mg/dL High HDL Cholesterol Performed By: #### L 501.9520, L100.0100, L500.4050, L500.4100 #### [facility] [address] [place], [address] Cholesterol in LDL [Mass/Vol] 124 mg/dL Normal 0-130 [facility] Comment on above: Performed By: #### L 501.9520, L100.0100, L500.4050, L500.4100 #### [facility] [address] [place], [address] Cholesterol in VLDL [Mass/Vol] 16 mg/dL Normal 5-40 [facility] Comment on above: Performed By: #### L 501.9520, L100.0100, L500.4050, L500.4100 #### [facility] [address] [place], [address] Triglyceride [Mass/Vol] 80 mg/dL Normal [facility] Comment on above: Result Comment: The drugs N-Acetylcysteine and Metamizole may falsely depress this assay. Serum Triglycerides Reference Interval Normal <150 mg/dL Borderline high 150 - 199 mg/dL High 200 - 499 mg/dL Very High > or = 500 mg/dL Performed By: #### L 501.9520, L100.0100, L500.4050, L500.4100 #### [facility] [address] [place], [address] Thyroid Stim Hormone (TSH)on 12-23-2023 TSH 1.31 uIU/mL Normal 0.358-3.74 [facility] Comment on above: Performed By: #### L 501.9520, L100.0100, L500.4050, L500.4100 #### [facility] [address] [place], [address] Extremity Upper without Cont raon 07-23-2024 Extremity Upper without Contra [facility] Imaging Services [address] [place], [place] [id number] Extremity Upper without Contra MR#: [id number] Acct: [id number] Name: FAISAL PRESLEY Rep #: [id number] : 1965 F 58 From: Leonard Hoover MD PCP: DARELL FontenotC Status: REG CLI Study: Extremity Upper without Contra Date of Exam: 0 12/22/23 Exam# [id number] Ordering Dr: Mikhail Francisco DO [id number] STUDY: CT RIGHT SHOULDER REASON FOR EXAM: Female, 58 years old. OSTEOARTHRITIS RADIATION DOSAGE (If Supplied By Facility): CTDIvol = ( 24.78 ) mGy, DLP = ( 596.07 ) mGycm TECHNIQUE: The patient was scanned in a multi detector CT scanner. High resolution transaxial imaging was performed without the administration of intravenous contrast material. Sagittal and coronal images were reconstructed. Individualized dose optimization techniques were used for this CT. COMPARISON: None. FINDINGS: Normal glenohumeral articulation. Normal glenoid rim, neck and visualized scapula. There is mild enthesopathic subcortical cyst formation of the lesser and greater tuberosities of the humeral head. Intact humeral head, neck and tuberosities. Normal coracoid process. Normal visualized lateral clavicle. 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 There is a Type II morphology (curved), with a neutral orientation. Normal visualized muscles and soft tissue structures. CT/Extremity Upper without Contra IMPRESSION: Mild acromioclavicular arthrosis. Electronically Signed: Leonard Hoover MD at 8:09 EDT , CC: JHON Meyers; Dr. Mikhail Francisco DO [employer]: Signed Normal [facility] Absolute lymphocyte countOrd ered By: Petra Faust on 04-15-2023 Lymphocytes Auto (Unsp spec) [#/Vol] 2.39 10*3/uL 0.83-4.51 [facility] Basophil percentageOrdered B y: Petra Faust on 04-15-2023 Basophils/100 WBC (Bld) 0.8 % 0-1 [facility] Bilirubin [Mass/Vol] 0.70 mg/dL 0.20-1.00 [facility] Comment on above: For patients on eltr ombopag therapy, use of Dimension [place] TBIL is not recommended. Chloride [Moles/Vol] 104 mmol/L 98-107 [facility] Cholesterol [Mass/Vol] 232 mg/dL <200 [facility] Comment on above: <200 mg/dL Desirable 200-240 mg/dL Borderline >240 mg/dL High Risk Eosinophils/100 WBC (Bld) 4.2 % 0-5 [facility] Glucose [Mass/Vol] 111 mg/dL 74-106 [facility] Comment on above: Fasting Glucose resu lt from 100 to 125 mg/dL suggests IMPAIRED HOMEOSTASIS per A.D.A. criteria. Neutrophils (Bld) [#/Vol] 5.1 10*3/uL 2.0-7.7 [facility] Neutrophils/100 WBC (Bld) 60.6 % 47-70 [facility] Potassium [Moles/Vol] 3.9 mmol/L 3.5-5.1 [facility] Protein [Mass/Vol] 7.8 g/dL 6.4-8.2 [facility] Sodium [Moles/Vol] 136 mmol/L 136-145 [facility] Triglyceride [Mass/Vol] 148 mg/dL <199 [facility] Comment on above: The drugs N-Acetylcy steine and Metamizole may falsely depress this assay.Serum Triglycerides Reference Interval Normal <150 mg/dL Borderline high 150 - 199 mg/dL High 200 - 499 mg/dL Very High > or = 500 mg/dL WBC (Bld) [#/Vol] 8.4 10*3/uL 4.4-11.0 [facility] Blood erythrocytes count (nu mber/volume)Ordered By: Petra Faust on 04-15-2023 RBC (Bld) [#/Vol] 4.82 10*6/uL 4.2-5.4 [facility] Blood hemoglobin measurement (mass/volume)Ordered By: Petra Faust on 04-15-2023 Hemoglobin (Bld) [Mass/Vol] 14.9 g/dL 12.0-15.0 [facility] Blood lymphocytes/100 leukoc ytesOrdered By: Petra Faust on 04-15-2023 Lymphocytes/100 WBC (Bld) 28.5 % 19-41 [facility] Blood monocytes/100 leukocyt esOrdered By: Petra Faust on 04-15-2023 Monocytes/100 WBC (Bld) 5.8 % 0-10 [facility] Blood platelet mean volumeOr dered By: Petra Faust on 04-15-2023 Platelet mean volume (Bld) [Entitic vol] 11.4 fL 6.2-12.0 [facility] Determination of erythrocyte mean corpuscular volume (MCV)Ordered By: Petra Faust on 04-15-2023 MCV (RBC) [Entitic vol] 93.8 fL 81-99 [facility] Hematocrit Auto (Bld) [Volum e fraction]Ordered By: Petra Faust on 04-15-2023 Hematocrit (Bld) [Volume fraction] 45.2 % 37-47 [facility] - Chemistry and C hemistry - challengeOrdered By: Petra Faust on 04-15-2023 ALP [Catalytic activity/Vol] 107 U/L 45-117 [facility] ALT [Catalytic activity/Vol] 25 U/L 13-56 [facility] CO2 [Moles/Vol] 27.0 mmol/L 21.0-32.0 [facility] Globulin (S) [Mass/Vol] 4.1 g/dL 2.2-4.2 [facility] Urea nitrogen/Creatinine [Mass ratio] 27.2 mg/mg 10-20 [facility] - Hematology and Cell countsOrdered By: Petra Faust on 04-15-2023 Erythrocyte distribution width (RBC) [Entitic vol] 43.0 fL 35.1-43.9 [facility] Erythrocyte distribution width (RBC) [Ratio] 12.4 % 11.6-14.6 [facility] Immature granulocytes/100 WBC (Bld) 0.100 % 0.0-0.9 [facility] Comment on above: IG% - Immature Granu locytes (promyelocytes, myelocytes and metamyelocytes) > 1% indicates that a LEFT SHIFT is Present. MCH (RBC) [Entitic mass] 30.9 pg 27.0-32.0 [facility] Nucleated RBC/100 WBC (Bld) [Ratio] 0 % 0-5 [facility] MCHC Auto (RBC) [Mass/Vol]Or dered By: Petra Faust on 04-15-2023 MCHC (RBC) [Mass/Vol] 33.0 g/dL 32-36 [facility] No Panel InformationOrdered By: Petra Faust on 04-15-2023 Estimated GFR (MDRD) Amer 93 mL/min >60 [facility] Comment on above: GFR Calc Estimated GFR (MDRD) Non-Af Amer 77 mL/min >60 [facility] Comment on above: Non- GFR Calc Thyroid Stimulating Hormone (TSH) 1.29 uIU/mL 0.358-3.74 [facility] Platelets bldOrdered By: Aleksander Faust on 04-15-2023 Platelets (Bld) [#/Vol] 285 10*3/uL 150-450 [facility] Serum or plasma albumin anastasiya urement (mass/volume)Ordered By: Petra Faust on 04-15-2023 Albumin [Mass/Vol] 3.7 g/dL 3.2-5.0 [facility] Serum or plasma albumin/glob ulin mass ratioOrdered By: Petra Faust on 04-15-2023 Albumin/Globulin [Mass ratio] 0.9 {ratio} 0.9-2.4 [facility] Serum or plasma calcium anastasiya urement (mass/volume)Ordered By: Petra Faust on 11-15-2023 Calcium [Mass/Vol] 8.9 mg/dL 8.5-10.1 [facility] Serum or plasma cholesterol in HDL measurement (mass/volume)Ordered By: Petra Faust on 04-15-2023 Cholesterol in HDL [Mass/Vol] 69 mg/dL >40 [facility] Comment on above: The drugs N-Acetylcy steine and Metamizole may falsely depress this assay. Reference Range HDL <40 mg/dL Low HDL Cholesterol HDL >or= 60 mg/dL High HDL Cholesterol Serum or plasma cholesterol in VLDL measurement (mass/volume)Ordered By: Petra Faust on 04-15-2023 Cholesterol in VLDL [Mass/Vol] 30 mg/dL 5-40 [facility] Serum or plasma creatinine m easurement (mass/volume)Ordered By: Petra Faust on 04-15-2023 Creatinine [Mass/Vol] 0.81 mg/dL 0.55-1.02 [facility] Comment on above: The validity of the calculated GFR & GFRAA in patients over 70 years has not been determined. Clinical correlation is essential. Serum or plasma low density lipoprotein (LDL) cholesterol measurement (mass/volume)Ordered By: Petra Faust on 04-15-2023 Cholesterol in LDL [Mass/Vol] 133 mg/dL 0-130 [facility] Serum or plasma urea nitroge n measurement (mass/volume)Ordered By: Petra Faust on 04-15-2023 Urea nitrogen [Mass/Vol] 22 mg/dL 7-18 [facility] Thin prep Papanicolaou smear with manual screeningOrdered By: ePtra Faust on 04-15-2023 Thin prep Papanicolaou smear with manual screening 25 U/L 15-37 [facility] Thin prep Papanicolaou smear with manual screening 5 5-15 [facility] Basophil percentageon 2021 Chloride [Moles/Vol] 103 mmol/L 98-107 [facility] Work Phone: Glucose [Mass/Vol] 109 mg/dL 74-106 [facility] Work Phone: Comment on above: Fasting Glucose resu lt from 100 to 125 mg/dL suggests IMPAIRED HOMEOSTASIS per A.D.A. criteria. Potassium [Moles/Vol] 3.9 mmol/L 3.5-5.1 [facility] Work Phone: Sodium [Moles/Vol] 138 mmol/L 136-145 [facility] Work Phone: Laboratory - Chemistry and C hemistry - challengeon 04-11-2022 CO2 [Moles/Vol] 26.0 mmol/L 21.0-32.0 [facility] Work Phone: Urea nitrogen/Creatinine [Mass ratio] 27.9 mg/mg 10- [facility] Work Phone: No Panel Informationon 04-11 Estimated GFR (MDRD) Amer 107 mL/min >60 [facility] Work Phone: Comment on above: GFR Calc Estimated GFR (MDRD) Non-Af Amer 89 mL/min >60 [facility] Work Phone: Comment on above: Non- GFR Calc Serum or plasma calcium anastasiya urement (mass/volume)on 04-11-2022 Calcium [Mass/Vol] 9.6 mg/dL 8.5-10.1 [facility] Work Phone: Serum or plasma creatinine m easurement (mass/volume)on 04-11-2022 Creatinine [Mass/Vol] 0.72 mg/dL 0.55-1.02 [facility] Work Phone: Comment on above: The validity of the calculated GFR & GFRAA in patients over 70 years has not been determined. Clinical correlation is essential. Serum or plasma urea nitroge n measurement (mass/volume)on 04-11-2022 Urea nitrogen [Mass/Vol] 20 mg/dL 7-18 [facility] Work Phone: Thin prep Papanicolaou smear with manual screeningon 04-11-2022 Thin prep Papanicolaou smear with manual screening 9 5-15 [facility] Work Phone: Absolute lymphocyte counton 03-21-2022 Lymphocytes Auto (Unsp spec) [#/Vol] 2.20 10*3/uL 0.83-4.51 [facility] Work Phone: Basophil percentageon 03-21- 2021 Basophils/100 WBC (Bld) 0.5 % 0-1 [facility] Work Phone: Bilirubin [Mass/Vol] 0.70 mg/dL 0.20-1.00 [facility] Work Phone: Comment on above: For patients on eltr ombopag therapy, use of Dimension [place] TBIL is not recommended. Chloride [Moles/Vol] 105 mmol/L 98-107 [facility] Work Phone: Cholesterol [Mass/Vol] 241 mg/dL <200 [facility] Work Phone: Comment on above: <200 mg/dL Desirable 200-240 mg/dL Borderline >240 mg/dL High Risk Eosinophils/100 WBC (Bld) 3.7 % 0-5 [facility] Work Phone: Glucose [Mass/Vol] 101 mg/dL 74-106 [facility] Work Phone: Comment on above: Fasting Glucose resu lt from 100 to 125 mg/dL suggests IMPAIRED HOMEOSTASIS per A.D.A. criteria. Neutrophils (Bld) [#/Vol] 4.5 10*3/uL 2.0-7.7 [facility] Work Phone: Neutrophils/100 WBC (Bld) 59.1 % 47-70 [facility] Work Phone: Potassium [Moles/Vol] 4.4 mmol/L 3.5-5.1 [facility] Work Phone: Protein [Mass/Vol] 8.1 g/dL 6.4-8.2 [facility] Work Phone: Sodium [Moles/Vol] 138 mmol/L 136-145 [facility] Work Phone: Triglyceride [Mass/Vol] 71 mg/dL <199 [facility] Work Phone: Comment on above: The drugs N-Acetylcy steine and Metamizole may falsely depress this assay.Serum Triglycerides Reference Interval Normal <150 mg/dL Borderline high 150 - 199 mg/dL High 200 - 499 mg/dL Very High > or = 500 mg/dL WBC (Bld) [#/Vol] 7.6 10*3/uL 4.4-11.0 [facility] Work Phone: Blood erythrocytes count (nu mber/volume)on 03-21-2022 RBC (Bld) [#/Vol] 4.95 10*6/uL 4.2-5.4 [facility] Work Phone: Blood hemoglobin measurement (mass/volume)on 03-21-2022 Hemoglobin (Bld) [Mass/Vol] 15.2 g/dL 12.0-15.0 [facility] Work Phone: Blood lymphocytes/100 leukoc yteson 03-21-2022 Lymphocytes/100 WBC (Bld) 29.1 % 19-41 [facility] Work Phone: Blood monocytes/100 leukocyt eson 03-21-2022 Monocytes/100 WBC (Bld) 7.3 % 0-10 [facility] Work Phone: Blood platelet mean volumeon 03-21-2022 Platelet mean volume (Bld) [Entitic vol] 11.6 fL 6.2-12.0 [facility] Work Phone: Determination of erythrocyte mean corpuscular volume (MCV)on 03-21-2022 MCV (RBC) [Entitic vol] 93.3 fL 81-99 [facility] Work Phone: Hematocrit Auto (Bld) [Volum e fraction]on 03-21-2022 Hematocrit (Bld) [Volume fraction] 46.2 % 37-47 [facility] Work Phone: Laboratory - Chemistry and C hemistry - challengeon 03-21-2022 ALP [Catalytic activity/Vol] 105 U/L 45-117 [facility] Work Phone: ALT [Catalytic activity/Vol] 34 U/L 13-56 [facility] Work Phone: CO2 [Moles/Vol] 27.0 mmol/L 21.0-32.0 [facility] Work Phone: Globulin (S) [Mass/Vol] 4.0 g/dL 2.2-4.2 [facility] Work Phone: Urea nitrogen/Creatinine [Mass ratio] 22.5 mg/mg 10-20 [facility] Work Phone: Laboratory - Hematology and Cell countson 03-21-2022 Erythrocyte distribution width (RBC) [Entitic vol] 42.8 fL 35.1-43.9 [facility] Work Phone: Erythrocyte distribution width (RBC) [Ratio] 12.4 % 11.6-14.6 [facility] Work Phone: Immature granulocytes/100 WBC (Bld) 0.300 % 0.0-0.9 [facility] Work Phone: Comment on above: IG% - Immature Granu locytes (promyelocytes, myelocytes and metamyelocytes) > 1% indicates that a LEFT SHIFT is Present. MCH (RBC) [Entitic mass] 30.7 pg 27.0-32.0 [facility] Work Phone: Nucleated RBC/100 WBC (Bld) [Ratio] 0 % 0-5 [facility] Work Phone: MCHC Auto (RBC) [Mass/Vol]on 03-21-2022 MCHC (RBC) [Mass/Vol] 32.9 g/dL 32-36 [facility] Work Phone: No Panel Informationon 03-21 Estimated GFR (MDRD) Amer 89 mL/min >60 [facility] Work Phone: Comment on above: GFR Calc Estimated GFR (MDRD) Non-Af Amer 73 mL/min >60 [facility] Work Phone: Comment on above: Non- GFR Calc Thyroid Stimulating Hormone (TSH) 1.16 uIU/mL 0.358-3.74 [facility] Work Phone: Vitamin D 25-Hydroxy 28.7 ng/mL [facility] Work Phone: Comment on above: Vitamin D 25(OH) Sta tus Range Deficiency <20 ng/mL (50nmol/L) Insufficiency 20 - 30 ng/mL (50 - 75 nmol/L) Sufficiency 30 - 100 ng/mL (75 - 250 nmol/L) Toxicity >100 ng/mL (>250 nmol/L) Platelets bldon 03-21-2022 Platelets (Bld) [#/Vol] 288 10*3/uL 150-450 [facility] Work Phone: Serum or plasma albumin anastasiya urement (mass/volume)on 03-21-2022 Albumin [Mass/Vol] 4.1 g/dL 3.2-5.0 [facility] Work Phone: Serum or plasma albumin/glob ulin mass ratioon 03-21-2022 Albumin/Globulin [Mass ratio] 1.0 {ratio} 0.9-2.4 [facility] Work Phone: Serum or plasma calcium anastasiya urement (mass/volume)on 03-21-2022 Calcium [Mass/Vol] 9.3 mg/dL 8.5-10.1 [facility] Work Phone: Serum or plasma cholesterol in HDL measurement (mass/volume)on 03-21-2022 Cholesterol in HDL [Mass/Vol] 79 mg/dL >40 [facility] Work Phone: Comment on above: The drugs N-Acetylcy steine and Metamizole may falsely depress this assay. Reference Range HDL <40 mg/dL Low HDL Cholesterol HDL >or= 60 mg/dL High HDL Cholesterol Serum or plasma cholesterol in VLDL measurement (mass/volume)on 03-21-2022 Cholesterol in VLDL [Mass/Vol] 14 mg/dL 5-40 [facility] Work Phone: Serum or plasma creatinine m easurement (mass/volume)on 03-21-2022 Creatinine [Mass/Vol] 0.84 mg/dL 0.55-1.02 [facility] Work Phone: Comment on above: The validity of the calculated GFR & GFRAA in patients over 70 years has not been determined. Clinical correlation is essential. Serum or plasma low density lipoprotein (LDL) cholesterol measurement (mass/volume)on 03-21-2022 Cholesterol in LDL [Mass/Vol] 148 mg/dL 0-130 [facility] Work Phone: Serum or plasma urea nitroge n measurement (mass/volume)on 03-21-2022 Urea nitrogen [Mass/Vol] 19 mg/dL 7-18 [facility] Work Phone: Thin prep Papanicolaou smear with manual screeningon 03-21-2022 Thin prep Papanicolaou smear with manual screening 21 U/L 15-37 [facility] Work Phone: Thin prep Papanicolaou smear with manual screening 6 5-15 [facility] Work Phone: Whole blood hemoglobin A1c/t otal hemoglobin ratio (mass fraction)on 03-21-2022 HbA1c (Bld) [Mass fraction] 5.4 % 3.8-5.6 [facility] Work Phone: Comment on above: Normal < 5.7 % Predi abetic 5.7 - 6.4 % Diabetic >or= 6.5 % Please note range changes. Lab Report: PAP I-G HPV Hi R iskon 02-05-2017 GE use only - for [employer] import when terms are not otherwise specified Negative Invalid Interpretation Code Negative [facility] Office Visit: est obon 01-29 Documentation of current medications (procedure) Done Invalid Interpretation Code [facility] Fall risk assessment No Invalid Interpretation Code [facility] Hemoglobin presence in stool not done Invalid Interpretation Code [facility] Tobacco smoking status NHIS Never Invalid Interpretation Code [facility] Tobacco use CPHS Never smoker Invalid Interpretation Code [facility] Clinical Lists 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 Maraí Murray Work Phone: [facility] 04-16-2023 08:26-0500 Body mass index (BMI) [Ratio] 34.7 kg/m2 Dr. María Murray Work Phone: [facility] 04-16-2023 08:26-0500 Body weight 89.[address] María Murray Work Phone: [facility] 04-16-2023 08:26-0500 Diastolic blood pressure 86 mm[Hg] Dr. María Murray Work Phone: [facility] 04-16-2023 08:26-0500 Systolic blood pressure 129 mm[Hg] Dr. María Murray Work Phone: [facility] 09-11-2022 15:33-0400 Body height 160.[address] María Murray Work Phone: [facility] 09-11-2022 15:33-0400 Body mass index (BMI) [Ratio] 34.7 kg/m2 Dr. María Murray Work Phone: [facility] 09-11-2022 15:33-0400 Body temperature 98.5 [degF] Dr. María Murray Work Phone: [facility] 09-11-2022 15:33-0400 Body weight 88.[address] María Murray Work Phone: [facility] 09-11-2022 15:33-0400 Diastolic blood pressure 76 mm[Hg] Dr. María Murray Work Phone: [facility] 09-11-2022 15:33-0400 Heart rate 66 /min Dr. María Murray Work Phone: [facility] 09-11-2022 15:33-0400 Respiratory rate 12 /min Dr. María Murray Work Phone: [facility] 09-11-2022 15:33-0400 SaO2% (BldA) [Mass fraction] 97 % Dr. María Murray Work Phone: [facility] 09-11-2022 15:33-0400 Systolic blood pressure 122 mm[Hg] Dr. María Murray Work Phone: [facility] 09-05-2022 13:15-0400 Body height 161.[address] María Murray Work Phone: [facility] 09-05-2022 13:15-0400 Body mass index (BMI) [Ratio] 34.2 kg/m2 Dr. María Murray Work Phone: [facility] 09-05-2022 13:15-0400 Body temperature 96.8 [degF] Dr. María Murray Work Phone: [facility] 09-05-2022 13:15-0400 Body weight 89.[address] María Murray Work Phone: [facility] 09-05-2022 13:15-0400 Diastolic blood pressure 84 mm[Hg] Dr. María Murray Work Phone: [facility] [facility] 09-05-2022 13:15-0400 Heart rate 80 /min Dr. María Murray Work Phone: [facility] 09-05-2022 13:15-0400 Respiratory rate 18 /min Dr. María Murray Work Phone: [facility] 09-05-2022 13:15-0400 SaO2% (BldA) [Mass fraction] 98 % Dr. María Murray Work Phone: [facility] 09-05-2022 13:15-0400 Systolic blood pressure 138 mm[Hg] Dr. María Murray Work Phone: [facility] 08-07-2022 09:05-0500 Body mass index (BMI) [Ratio] 34.2 kg/m2 Dr. María Murray Work Phone: [facility] 08-07-2022 09:05-0500 Body temperature 97.7 [degF] Dr. María Murray Work Phone: [facility] 08-07-2022 09:05-0500 Body weight 89.[address] María Murray Work Phone: [facility] 08-07-2022 09:05-0500 Diastolic blood pressure 84 mm[Hg] Dr. María Murray Work Phone: [facility] 08-07-2022 09:05-0500 Heart rate 83 /min Dr. María Murray Work Phone: [facility] 08-07-2022 09:05-0500 Respiratory rate 18 /min Dr. María Murray Work Phone: [facility] 08-07-2022 09:05-0500 SaO2% (BldA) [Mass fraction] 98 % Dr. María Murray Work Phone: [facility] 08-07-2022 09:05-0500 Systolic blood pressure 144 mm[Hg] Dr. María Murray Work Phone: [facility] 04-14-2022 08:42-0500 Body height 161.[address] María Murray Work Phone: [facility] Work Phone: 04-14-2022 08:41-0500 Body mass index (BMI) [Ratio] 27 kg/m2 Dr. María Murray Work Phone: [facility] Work Phone: 04-14-2022 08:41-0500 Body weight [address] María Murray Work Phone: [facility] Work Phone: 04-14-2022 08:41-0500 Diastolic blood pressure 83 mm[Hg] Dr. María Murray Work Phone: [facility] Work Phone: 04-14-2022 08:41-0500 Systolic blood pressure 148 mm[Hg] Dr. María Murray Work Phone: [facility] Work Phone: 03-19-2022 15:10-0400 Body height 161.[address] María Murray Work Phone: [facility] Work Phone: 03-19-2022 15:10-0400 Body mass index (BMI) [Ratio] 32.8 kg/m2 Dr. María Murray Work Phone: [facility] Work Phone: 03-19-2022 15:10-0400 Body temperature 97.7 [degF] Dr. María Murray Work Phone: [facility] Work Phone: 03-19-2022 15:10-0400 Body weight 85.[address] María Murray Work Phone: [facility] Work Phone: 03-19-2022 15:10-0400 Diastolic blood pressure 108 mm[Hg] Dr. María Murray Work Phone: [facility] Work Phone: 03-19-2022 15:10-0400 Heart rate 75 /min Dr. María Murray Work Phone: [facility] Work Phone: 03-19-2022 15:10-0400 Respiratory rate 16 /min Dr. María Murray Work Phone: [facility] Work Phone: 03-19-2022 15:10-0400 SaO2% (BldA) [Mass fraction] 96 % Dr. María Murray Work Phone: [facility] Work Phone: 03-19-2022 15:10-0400 Systolic blood pressure 140 mm[Hg] Dr. María Murray Work Phone: [facility] Work Phone: 01-29-2017 13:52-0400 BMI (Body Mass Index) 34.1 kg/m2 Petra Faust MD [facility] 01-29-2017 13:52-0400 Body Temperature 96.5 [degF] Petra Faust MD [facility] 01-29-2017 13:52-0400 Body Temperature 96.49 [degF] Petra Faust MD [facility] 01-29-2017 13:52-0400 BP Diastolic 81 mm[Hg] Petra Faust MD [facility] 01-29-2017 13:52-0400 BP Systolic 130 mm[Hg] Petra Faust MD [facility] 01-29-2017 13:52-0400 Height 161.29 cm Petra Faust MD [facility] 01-29-2017 13:52-0400 Pulse (Heart Rate) 62 /min Petra Faust MD [facility] 01-29-2017 13:52-0400 Respiratory Rate 16 /min Petra Faust MD [facility] 01-29-2017 13:52-0400 Weight 88.72 kg Petra Faust MD [facility] Encounters Encounter Date Encounter Type Care Provider Facility Start: 04-25-2024 End: 04-25-2024 ambulatory Jose Miguel Meyers [facility] Facility:[facility] Start: 04-20-2024 Encounter for gynecological examination (general) (routine) without abnormal findings Petra Faust [facility] Start: 04-20-2024 End: 04-20-2024 ambulatory Jose Miguel Meyers [facility] Facility:[facility] Start: 01-14-2024 Encounter for other preprocedural examination Jose Miguel Meyers [facility] Start: 12-23-2023 End: 12-23-2023 ambulatory Jose Miguel Meyers [facility] Facility:[facility] Start: 12-22-2023 End: 12-22-2023 ambulatory Jose Miguel Meyers [facility] Facility:[facility] Start: 04-16-2023 End: 04-16-[address] María Murray Work Phone: [facility] Work Phone: Start: 04-15-2023 End: 04-15-[address] María Murray Work Phone: [facility] Work Phone: Start: 04-15-2023 End: 04-15-[address] María Murray Work Phone: [facility] Work Phone: Start: 09-16-2022 End: 09-16-[address] María Murray Work Phone: [facility] Work Phone: Start: 09-16-2022 End: 09-16-[address] María Murray Work Phone: [facility] Start: 09-11-2022 End: 09-11-[address] María Murray Work Phone: [facility] Start: 09-05-2022 End: 09-05-[address] María Murray Work Phone: [facility] Start: 09-02-2022 End: 09-02-[address] María Murray Work Phone: [facility] Work Phone: Start: 09-02-2022 End: 09-02-[address] María Murray Work Phone: [facility] Start: 08-07-2022 End: 08-07-[address] María Murray Work Phone: [facility] Start: 04-14-2022 End: 04-14-[address] María Murray Work Phone: [facility] Start: 04-14-2022 End: 04-14-[address] María Murray Work Phone: [facility] Work Phone: Start: 04-14-2022 End: 04-14-[address] María Murray Work Phone: [facility] Start: 04-11-2022 End: 04-11-[address] María Murray Work Phone: [facility] Work Phone: Start: 04-11-2022 End: 04-11-[address] María Murray Work Phone: [facility] Start: 03-21-2022 End: 03-21-[address] María Murray Work Phone: [facility] Work Phone: Start: 03-21-2022 End: 03-21-[address] María Murray Work Phone: [facility] [place] Start: 03-19-2022 End: 03-19-2022 Encounter for general adult medical examination without abnormal findings Dr. María Murray Work Phone: [facility] Start: 03-19-2022 End: 03-19-[address] María Murray Work Phone: [facility] Procedures Date Procedure Procedure Detail Performing Clinician Start: 04-15-2023 Screening mammography Naomi Murray Work Phone: Start: 09-16-2022 Dual energy X-ray absorptiometry Dr. María Murray Work Phone: Start: 09-02-2022 X-ray of chest posteroanterior view Dr. María Murray Work Phone: Start: 04-14-2022 Screening mammography Naomi Murray Work Phone: Plan of Treatment Date Care Activity Detail Author Start: 01-29-2017 End: 01-29-2017 Appointment Appointment [facility] Start: 01-29-2017 End: 02-02-2017 Mammogram, screening Mammogram, Screening, both breasts [facility] DXA Bone [Mass/Area] Bone density [facility] XR Ribs GE 3 Views a nd Chest PA [facility] Immunizations Immunization Date Immunization Notes Care Provider Fa cility 03-19-2022 influenza, injectabl e, quadrivalent, preservative free Dr. María Murray Work Phone: [facility] 03-19-2022 influenza, seasonal, injectable Dr. María Murray Work Phone: [facility] 03-29-2020 influenza, injectable,quadrivalent , preservative free, pediatric Dr. María Murray Work Phone: [facility] Payers Date Payer Category Payer Self-pay [id number] 2023 Unknown [id number] Unknown [facility] [id number] Unknown [employer] P[employer] [id number] Unknown [facility] P[facility] PL[facility] [id number] Unknown [id number] Unknown [id number] Unknown [id number] Unknown [id number] Social History Date Type Detail Facility Start: 03-19-2022 End: 04-16-2023 Tobacco smoking status NHIS Unknown if ever smoked [facility] Start: 1965 Sex Assigned At Female [facility] Evaluation note Note Date & Type Note Facility Evaluation note Diagnosis Onset Date Climacteric acute Hypertension chronic Preventative health care non eactive [facility] Work Phone: Evaluation note Note Date & Type Note Facility Evaluation note Diagnosis Onset Date Climacteric acute Hypertension chronic Preventative health care non eactive Encounter for routine gyneco logical examination noneactive [facility] Work Phone: Evaluation note Note Date & Type Note Facility Evaluation note Diagnosis Onset Date Seasonal allergies acute HTN (hypertension) chronic Obesity (BMI 30.0-34.9) none active Left rib fracture noneactive Acute bronchitis noneactive [facility] Work Phone: Evaluation note Note Date & Type Note Facility Evaluation note Diagnosis Onset Date Seasonal allergies acute HTN (hypertension) chronic Obesity (BMI 30.0-34.9) none active Left rib fracture noneactive Acute bronchitis noneactive Left rib fracture noneactive Acute bronchitis noneactive [facility] Work Phone: Evaluation note Note Date & Type Note Facility Evaluation note Diagnosis Onset Date Climacteric acute Decreased libido acute Encounter for routine gyneco logical examination noneactive [facility] Work Phone: Chief Complaint and Reason for Visit Chief Complaint YEARLY PHYSICAL Reason for Visit Climacteric Hypertension Preventative health care Chief Complaint YEARLY PHYSICAL SCREENING Annual ([facility]) Reason for Visit Climacteric Hypertension Preventative health care Encounter for routine gynecological examination Chief Complaint 3 M FU EORDER- fall, left rib pain, cough RIB FX Reason for Visit Seasonal allergies HTN (hypertension) Obesity (BMI 30.0-34.9) Left rib fracture Acute bronchitis Chief Complaint 3 M FU EORDER- fall, left rib pain, cough RIB FX 1 W FU POSTMENOPAUSAL Reason for Visit Seasonal allergies HTN (hypertension) Obesity (BMI 30.0-34.9) Left rib fracture Acute bronchitis Left rib fracture Acute bronchitis Chief Complaint SCREEN Annual ([facility]) Reason for Visit Climacteric Decreased libido Encounter for routine gynecological examination Family History No Family History Records Found Relationship Condition Age at Onset Recorded Date/T beatris father Malignant neoplasm Unknown Diabetes mellitus Unknown mother Chronic obstructive pulmonary disease Unk nown grandfather Diabetes mellitus Unknown sister Disorder of thyroid Unknown Summary Purpose Advance Directives No Advanced Directives Records Found Additional Source Comments Goals (unrecognized section and content) Goals may be documented in a n alternate sectionGoals may be documented in an alternate sectionGoals may be documented in an alternate sectionGoals may be documented in an alternate sectionGoals may be documented in an alternate sectionGoals may be documented in an alternate section Care Teams (unrecognized sec tion and content) Team Status: Active Member Role Status Dates Dr. María Murray MD Family Provider Active Dr. María Murray MD Primary Care Provider Active Team Status: Inactive Member Role Status Dates Dr. María Murray MD Primary Care Provider, Refer ring Provider Active Jose Miguel Meyers NP, EXTRUSION MANAGER-C Attending Provider Active Team Status: Inactive Member Role Status Dates Dr. María Murray MD Primary Care Provider Active Jose Miguel Meyers NP, EXTRUSION MANAGER-C Attending Provider, Referring Prov ider Active Team Status: Active Member Role Status Dates Dr. María Murray MD Family Provider Active Jose Miguel Meyers EXTRUSION MANAGER, EXTRUSION MANAGER-C Primary Care Provider Active Team Status: Inactive Member Role Status Dates Dr. María Murray MD Referring Provider Active Jose Miguel Meyers EXTRUSION MANAGER, EXTRUSION MANAGER-C Primary Care Provider, Attending P sarah Active Team Status: Inactive Member Role Status Dates Jose Miguel Meyers EXTRUSION MANAGER, EXTRUSION MANAGER-C Primary Care Provide r, Attending Provider, Referring Provider Active Team Status: Inactive Member Role Status Dates Dr. María Murray MD Referring Provider Active Dr. Petra Faust MD Attending Provider Active Jose Miguel Meyers EXTRUSION MANAGER, EXTRUSION MANAGER-C Primary Care Provider Active Team Status: Inactive Member Role Status Dates Jose Miguel Meyers NP, EXTRUSION MANAGER-C Primary Care Provider Active Dr. Petra Faust MD Attending Provider, Referr ing Provider Active INFORMATION SOURCE (unrecogn ized section and content) DATE CREATED AUTHOR 05/04/2024 [facility] FOR RECORDS PERTAINING TO PATIENTS WHO ARE OR HAVE BEEN ENROLLED IN A CHEMICAL DEPENDENCY/SUBSTANCEABUSE PROGRAM, SOME INFORMATION MAY BE OMITTED. This clinical summary was aggregated from multiple sources. Caution should be exercised in using it in the provision of clinical care. This summary normalizes information from multiple sources, and as a consequence, information in this document may materially change the coding, format and clinical context of patient data. In addition, data may be omitted in some cases. CLINICAL DECISIONS SHOULD BE BASED ON THE PRIMARY CLINICAL RECORDS. [employer] [facility]. provides no warranty or guarantee of the accuracy or completeness of information in this document.
--- OUTSIDE RECORDS SUMMARY | 2024-12-28 18:16 | XMS RPT_ITS | CCD ---
Author Organization [facility] Care Team Providers Care Toy Stuffer Name Role Phone Petra Faust MD Unavailable [phone] Rex BAIG, Leslie S Unavailable [phone] Tanna Allen Unavailable Unavailab Dr. María Clark Primary Care Provider [phone] Dr. María Murray Referring Provider [phone] Cornelius REEFER ENGINEER, REEFER ENGINEER-C Jose Miguel Attending Provider [phone] Dr. María Murray Primary Care Provider [phone] Dr. María Murray Referring Provider [phone] Cornelius REEFER ENGINEER, REEFER ENGINEER-C Jose Miguel Attending Provider [phone] Dr. Petra Faust Attending Provider [phone] Dr. María Murray Primary Care Provider [phone] Dr. María Murray Referring Provider [phone] Meyers REEFER ENGINEER, REEFER ENGINEER-C Jose Miguel Attending Provider [phone] Meyers REEFER ENGINEER, REEFER ENGINEER-C Jose Miguel Primary Care Provider Dr. María Murray Referring Provider [phone] Dr. Petra Faust Attending Provider [phone] Meyers REEFER ENGINEER, REEFER ENGINEER-C Jose Miguel Primary Care Provider Meyers [facility], Jose Miguel Primary Care Unavailable Petra Faust Referring Unavailable Petra Faust Attending Unavailable Meyers [facility], Jose Miguel Primary Care Unavailable Mikhail Francisco Referring Unavailable Mikhail Francisco Attending Unavailable Cornelius [facility], Jose Miguel Attending Unavailable Cornelius [facility], Jose Miguel Primary Care Unavailable Jose Miguel [...] March 29, 2020 12:11pm 84 hr estradiol 0.80348 mg/hr / norethindrone acetate 0.0104 mg/hr transdermal [...] 11:00pm December 07, 2018 11:07pm estrogens, conjugated (retirement) 0.3 mg / medroxyPROGESTERone acetate 1.5 mg [...] 01-29-2017 MULTIVITAMIN WOMEN 50+ TABS MULTIPLE VITAMINS-MINERALS [id number] Petra Faust MD Drug Treatment Unknown - [...] BILATo n 04-25-2024 SCRN MAMM (CAD)W/ROSIE BILAT [facility] Imaging Services [address] [place], [place] [address] SCRN MAMM (CAD)W/ROSIE BILAT MR#: [id number] Acct: [id number] Name: FAISAL PRESLEY Rep #: [id number] : 1965 F 59 From: Chi Denny MD PCP: JHON Fontenot Status: [facility] Study: SCRN MAMM (CAD)W/ROSIE BILAT Date of Exam: 04/02 10/22 Exam# [id number] Ordering Dr: Petra Faust [id number] MAMMOGRAPHY - BILATERAL SCREENING 3-D TOMOSYNTHESIS REASON [...] CC: JHON Meyers; Dr. Petra Faust MD Parts Counter Representative: Signed Normal [facility] Line Service Person Office Visit Reporton 04-20-2024 Line Service Person Office Visit Report [facility]'s [address], [address] [place] [address] OFFICE VISIT Date of Service: 04/20/24 MR#: [id number] Acct: [id number] Name: FAISAL PRESLEY Rep #: [id number] : 1965 Provider: Dr. Petra dutton MD Age/Sex: 59/F Location: 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 Smoking Status: Never smoker alcohol intake: current alcohol intake frequency: a few times a month details: social substance use type: does not use caffeine: Yes what type of physical activity do you participate in: walking frequency: 5-6 times per week seatbelt use: always do you feel safe at home: Yes 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 Normal [facility] CBC W/Diff, Automatedon 07-2 Absolute Lymph 1.99 X10 3/uL Normal 0.83-4.51 [facility] Comment on above: Performed By: #### L 501.9520, L100.0100, L500.4050, L500.4100 #### [facility] [address] [place], [address] Absolute Neut 4.5 X10 3/uL Normal 2.0-7.7 [facility] Comment on above: Performed By: #### L 501.9520, L100.0100, L500.4050, L500.4100 #### [facility] [address] [place], [address] Basophils/100 WBC (Bld) 0.7 % Normal 0-1 [facility] Comment on above: Performed By: #### L 501.9520, L100.0100, L500.4050, L500.4100 #### [facility] [address] [place], [address] Eosinophils/100 WBC (Bld) 3.2 % Normal 0-5 [facility] Comment on above: Performed By: #### L 501.9520, L100.0100, L500.4050, L500.4100 #### [facility] [address] [place], [address] Erythrocyte distribution width (RBC) [Ratio] 12.8 % Normal 11.6-14.6 [facility] Comment on above: Performed By: #### L 501.9520, L100.0100, L500.4050, L500.4100 #### [facility] [address] [place], [address] Hematocrit (Bld) [Volume fraction] 42.8 % Normal 37-47 [facility] Comment on above: Performed By: #### L 501.9520, L100.0100, L500.4050, L500.4100 #### [facility] [address] [place], [address] Hemoglobin (Bld) [Mass/Vol] 14.2 g/dL Normal 12.0-15.0 [facility] Comment on above: Performed By: #### L 501.9520, L100.0100, L500.4050, L500.4100 #### [facility] [address] [place], [address] IG% 0.300 Normal 0.0-0.9 [facility] Comment on above: Result Comment: IG% - Immature Granulocytes (promyelocytes, myelocytes and metamyelocytes) > 1% indicates that a LEFT SHIFT is Present. Performed By: #### L 501.9520, L100.0100, L500.4050, L500.4100 #### [facility] [address] [place], [address] Lymphocytes/100 WBC (Bld) 27.9 % Normal 19-41 [facility] Comment on above: Performed By: #### L 501.9520, L100.0100, L500.4050, L500.4100 #### [facility] [address] [place], [address] MCH (RBC) [Entitic mass] 31.0 pg Normal 27.0-32.0 [facility] Comment on above: Performed By: #### L 501.9520, L100.0100, L500.4050, L500.4100 #### [facility] [address] [place], [address] MCHC (RBC) [Mass/Vol] 33.2 g/dL Normal 32-36 [facility] Comment on above: Performed By: #### L 501.9520, L100.0100, L500.4050, L500.4100 #### [facility] [address] [place], [address] MCV (RBC) [Entitic vol] 93.4 fL Normal 81-99 [facility] Comment on above: Performed By: #### L 501.9520, L100.0100, L500.4050, L500.4100 #### [facility] [address] [place], [address] Monocytes/100 WBC (Bld) 5.3 % Normal 0-10 [facility] Comment on above: Performed By: #### L 501.9520, L100.0100, L500.4050, L500.4100 #### [facility] [address] [place], [address] Neutrophils/100 WBC (Bld) 62.6 % Normal 47-70 [facility] Comment on above: Performed By: #### L 501.9520, L100.0100, L500.4050, L500.4100 #### [facility] [address] [place], [address] Nucleated RBC (Bld) [#/Vol] 0 10*3/uL Normal 0-5 [facility] Comment on above: Performed By: #### L 501.9520, L100.0100, L500.4050, L500.4100 #### [facility] [address] [place], [address] Platelet mean volume (Bld) [Entitic vol] 12.1 fL High 6.2-12.0 [facility] Comment on above: Performed By: #### L 501.9520, L100.0100, L500.4050, L500.4100 #### [facility] [address] [place], [address] Platelets (Bld) [#/Vol] 270 10*3/uL Normal 150-450 [facility] Comment on above: Performed By: #### L 501.9520, L100.0100, L500.4050, L500.4100 #### [facility] [address] [place], [address] RBC (Bld) [#/Vol] 4.58 10*6/uL Normal 4.2-5.4 [facility] Comment on above: Performed By: #### L 501.9520, L100.0100, L500.4050, L500.4100 #### [facility] [address] [place], [address] RDW SD 43.8 fl Normal 35.1-43.9 [facility] Comment on above: Performed By: #### L 501.9520, L100.0100, L500.4050, L500.4100 #### [facility] [address] [place], [address] WBC (Bld) [#/Vol] 7.1 10*3/uL Normal 4.4-11.0 [facility] Comment on above: Performed By: #### L 501.9520, L100.0100, L500.4050, L500.4100 #### [facility] [address] [place], [address] Comprehensive Metabolic Prof ilon 12-23-2023 Albumin [Mass/Vol] 3.7 g/dL Normal 3.2-5.0 [facility] Comment on above: Performed By: #### L 501.9520, L100.0100, L500.4050, L500.4100 #### [facility] [address] [place], [address] Albumin/Globulin [Mass ratio] 0.9 {ratio} Normal 0.9-2.4 [facility] Comment on above: Performed By: #### L 501.9520, L100.0100, L500.4050, L500.4100 #### [facility] [address] [place], [address] ALK P 84 U/L Normal 45-117 [facility] Comment on above: Performed By: #### L 501.9520, L100.0100, L500.4050, L500.4100 #### [facility] [address] [place], [address] ALT [Catalytic activity/Vol] 32 U/L Normal 13-56 [facility] Comment on above: Performed By: #### L 501.9520, L100.0100, L500.4050, L500.4100 #### [facility] [address] [place], [address] AST [Catalytic activity/Vol] 31 U/L Normal 15-37 [facility] Comment on above: Result Comment: Slig ht Hemolysis, Result may be falsely increased. Performed By: #### L 501.9520, L100.0100, L500.4050, L500.4100 #### [facility] [address] [place], [address] Bilirubin [Mass/Vol] 0.60 mg/dL Normal 0.20-1.00 [facility] Comment on above: Result Comment: For patients on eltrombopag therapy, use of Dimension [place] TBIL is not recommended. Performed By: #### L 501.9520, L100.0100, L500.4050, L500.4100 #### [facility] [address] [place], [address] BUN/CRE 14.8 RATIO Normal 10-20 [facility] Comment on above: Performed By: #### L 501.9520, L100.0100, L500.4050, L500.4100 #### [facility] [address] [place], [address] CA,Total 9.6 mg/dL Normal 8.5-10.1 [facility] Comment on above: Performed By: #### L 501.9520, L100.0100, L500.4050, L500.4100 #### [facility] [address] [place], [address] Chloride [Moles/Vol] 105 mmol/L Normal 98-107 [facility] Comment on above: Performed By: #### L 501.9520, L100.0100, L500.4050, L500.4100 #### [facility] [address] [place], [address] CO2 [Moles/Vol] 26.0 mmol/L Normal 21.0-32.0 [facility] Comment on above: Performed By: #### L 501.9520, L100.0100, L500.4050, L500.4100 #### [facility] [address] [place], [address] Creatinine [Mass/Vol] 0.74 mg/dL Normal 0.55-1.02 [facility] Comment on above: Result Comment: The validity of the calculated GFR GFRAA in patients over 70 years has not been determined. Clinical correlation is essential. Performed By: #### L 501.9520, L100.0100, L500.4050, L500.4100 #### [facility] [address] [place], [address] EST GFR - AA 103 mL/min Normal >60 [facility] Comment on above: Result Comment: Afri can [place] GFR Calc Performed By: #### L 501.9520, L100.0100, L500.4050, L500.4100 #### [facility] [address] [place], [address] GAP 8 Normal 5-15 [facility] Comment on above: Performed By: #### L 501.9520, L100.0100, L500.4050, L500.4100 #### [facility] [address] [place], [address] GFR/1.73 sq M.predicted among non-blacks MDRD (S/P/Bld) [Vol rate/Area] 85 mL/min/{1.73_m2} Normal >60 [facility] Comment on above: Result Comment: Non- GFR Calc Performed By: #### L 501.9520, L100.0100, L500.4050, L500.4100 #### [facility] [address] [place], [address] Globulin (S) [Mass/Vol] 4.0 g/dL Normal 2.2-4.2 [facility] Comment on above: Performed By: #### L 501.9520, L100.0100, L500.4050, L500.4100 #### [facility] [address] [place], [address] Glucose [Mass/Vol] 93 mg/dL Normal 74-106 [facility] Comment on above: Performed By: #### L 501.9520, L100.0100, L500.4050, L500.4100 #### [facility] [address] [place], [address] Potassium [Moles/Vol] 3.7 mmol/L Normal 3.5-5.1 [facility] Comment on above: Result Comment: Slig ht Hemolysis, Result may be falsely increased. Performed By: #### L 501.9520, L100.0100, L500.4050, L500.4100 #### [facility] [address] [place], [address] Sodium [Moles/Vol] 139 mmol/L Normal 136-145 [facility] Comment on above: Performed By: #### L 501.9520, L100.0100, L500.4050, L500.4100 #### [facility] [address] [place], [address] T PROT 7.7 g/dL Normal 6.4-8.2 [facility] Comment on above: Performed By: #### L 501.9520, L100.0100, L500.4050, L500.4100 #### [facility] [address] [place], [address] Urea nitrogen [Mass/Vol] 11 mg/dL Normal 7-18 [facility] Comment on above: Performed By: #### L 501.9520, L100.0100, L500.4050, L500.4100 #### [facility] [address] [place], [address] Lipid Profileon 12-23-2023 Cholesterol [Mass/Vol] 208 mg/dL High 200 [facility] Comment on above: Result Comment: <200 mg/dL Desirable 200-240 mg/dL Borderline >240 mg/dL High Risk Performed By: #### L 501.9520, L100.0100, L500.4050, L500.4100 #### [facility] [address] [place], [address] Cholesterol in HDL [Mass/Vol] 68 mg/dL Normal [facility] Comment on above: Result Comment: The drugs N-Acetylcysteine and Metamizole may falsely depress this assay. Reference Range HDL <40 mg/dL Low HDL Cholesterol HDL >or= 60 mg/dL High HDL Cholesterol Performed By: #### L 501.9520, L100.0100, L500.4050, L500.4100 #### [facility] [address] [place], [address] Cholesterol in LDL [Mass/Vol] 124 mg/dL Normal 0-130 [facility] Comment on above: Performed By: #### L 501.9520, L100.0100, L500.4050, L500.4100 #### [facility] [address] [place], [address] Cholesterol in VLDL [Mass/Vol] 16 mg/dL Normal 5-40 [facility] Comment on above: Performed By: #### L 501.9520, L100.0100, L500.4050, L500.4100 #### [facility] [address] [place], [address] Triglyceride [Mass/Vol] 80 mg/dL Normal [facility] Comment on above: Result Comment: The drugs N-Acetylcysteine and Metamizole may falsely depress this assay. Serum Triglycerides Reference Interval Normal <150 mg/dL Borderline high 150 - 199 mg/dL High 200 - 499 mg/dL Very High > or = 500 mg/dL Performed By: #### L 501.9520, L100.0100, L500.4050, L500.4100 #### [facility] [address] [place], [address] Thyroid Stim Hormone (TSH)on 12-23-2023 TSH 1.31 uIU/mL Normal 0.358-3.74 [facility] Comment on above: Performed By: #### L 501.9520, L100.0100, L500.4050, L500.4100 #### [facility] [address] [place], [address] Extremity Upper without Cont raon 07-23-2024 Extremity Upper without Contra [facility] Imaging Services [address] [place], [place] [id number] Extremity Upper without Contra MR#: [id number] Acct: [id number] Name: FAISAL PRESLEY Rep #: [id number] : 1965 F 58 From: Leonard Hoover MD PCP: DARELL FontenotC Status: REG CLI Study: Extremity Upper without Contra Date of Exam: 0 12/22/23 Exam# [id number] Ordering Dr: Mikhail Francisco DO [id number] STUDY: CT RIGHT SHOULDER REASON FOR EXAM: [...] CC: JHON Meyers; Dr. Mikhail Francisco DO Parts Counter Representative: Signed Normal [facility] Absolute lymphocyte countOrd ered By: Petra Faust on 04-15-2023 Lymphocytes Auto (Unsp spec) [#/Vol] 2.39 10*3/uL 0.83-4.51 [facility] Basophil percentageOrdered B y: Petra Faust on 04-15-2023 Basophils/100 WBC (Bld) 0.8 % 0-1 [facility] Bilirubin [Mass/Vol] 0.70 mg/dL 0.20-1.00 [facility] Comment on above: For patients on eltr ombopag therapy, use of Dimension [place] TBIL is not recommended. Chloride [Moles/Vol] 104 mmol/L 98-107 [facility] Cholesterol [Mass/Vol] 232 mg/dL <200 [facility] Comment on above: <200 mg/dL Desirable 200-240 mg/dL Borderline >240 mg/dL High Risk Eosinophils/100 WBC (Bld) 4.2 % 0-5 [facility] Glucose [Mass/Vol] 111 mg/dL 74-106 [facility] Comment on above: Fasting Glucose resu lt from 100 to 125 mg/dL suggests IMPAIRED HOMEOSTASIS per A.D.A. criteria. Neutrophils (Bld) [#/Vol] 5.1 10*3/uL 2.0-7.7 [facility] Neutrophils/100 WBC (Bld) 60.6 % 47-70 [facility] Potassium [Moles/Vol] 3.9 mmol/L 3.5-5.1 [facility] Protein [Mass/Vol] 7.8 g/dL 6.4-8.2 [facility] Sodium [Moles/Vol] 136 mmol/L 136-145 [facility] Triglyceride [Mass/Vol] 148 mg/dL <199 [facility] Comment on above: The drugs N-Acetylcy steine and Metamizole may falsely depress this assay.Serum Triglycerides Reference Interval Normal <150 mg/dL Borderline high 150 - 199 mg/dL High 200 - 499 mg/dL Very High > or = 500 mg/dL WBC (Bld) [#/Vol] 8.4 10*3/uL 4.4-11.0 [facility] Blood erythrocytes count (nu mber/volume)Ordered By: Petra Faust on 04-15-2023 RBC (Bld) [#/Vol] 4.82 10*6/uL 4.2-5.4 [facility] Blood hemoglobin measurement (mass/volume)Ordered By: Petra Faust on 04-15-2023 Hemoglobin (Bld) [Mass/Vol] 14.9 g/dL 12.0-15.0 [facility] Blood lymphocytes/100 leukoc ytesOrdered By: Petra Faust on 04-15-2023 Lymphocytes/100 WBC (Bld) 28.5 % 19-41 [facility] Blood monocytes/100 leukocyt esOrdered By: Petra Faust on 04-15-2023 Monocytes/100 WBC (Bld) 5.8 % 0-10 [facility] Blood platelet mean volumeOr dered By: Petra Faust on 04-15-2023 Platelet mean volume (Bld) [Entitic vol] 11.4 fL 6.2-12.0 [facility] Determination of erythrocyte mean corpuscular volume (MCV)Ordered By: Petra Faust on 04-15-2023 MCV (RBC) [Entitic vol] 93.8 fL 81-99 [facility] Hematocrit Auto (Bld) [Volum e fraction]Ordered By: Petra Faust on 04-15-2023 Hematocrit (Bld) [Volume fraction] 45.2 % 37-47 [facility] Laboratory - Chemistry and C hemistry - challengeOrdered By: Petra Faust on 04-15-2023 ALP [Catalytic activity/Vol] 107 U/L 45-117 [facility] ALT [Catalytic activity/Vol] 25 U/L 13-56 [facility] CO2 [Moles/Vol] 27.0 mmol/L 21.0-32.0 [facility] Globulin (S) [Mass/Vol] 4.1 g/dL 2.2-4.2 [facility] Urea nitrogen/Creatinine [Mass ratio] 27.2 mg/mg 10-20 [facility] Laboratory - Hematology and Cell countsOrdered By: Petra Faust on 04-15-2023 Erythrocyte distribution width (RBC) [Entitic vol] 43.0 fL 35.1-43.9 [facility] Erythrocyte distribution width (RBC) [Ratio] 12.4 % 11.6-14.6 [facility] Immature granulocytes/100 WBC (Bld) 0.100 % 0.0-0.9 [facility] Comment on above: IG% - Immature Granu locytes (promyelocytes, myelocytes and metamyelocytes) > 1% indicates that a LEFT SHIFT is Present. MCH (RBC) [Entitic mass] 30.9 pg 27.0-32.0 [facility] Nucleated RBC/100 WBC (Bld) [Ratio] 0 % 0-5 [facility] MCHC Auto (RBC) [Mass/Vol]Or dered By: Petra Faust on 04-15-2023 MCHC (RBC) [Mass/Vol] 33.0 g/dL 32-36 [facility] No Panel InformationOrdered By: Petra Faust on 04-15-2023 Estimated GFR (MDRD) Amer 93 mL/min >60 [facility] Comment on above: GFR Calc Estimated GFR (MDRD) Non-Af Amer 77 mL/min >60 [facility] Comment on above: Non- GFR Calc Thyroid Stimulating Hormone (TSH) 1.29 uIU/mL 0.358-3.74 [facility] Platelets bldOrdered By: Aleksander Faust on 04-15-2023 Platelets (Bld) [#/Vol] 285 10*3/uL 150-450 [facility] Serum or plasma albumin anastasiya urement (mass/volume)Ordered By: Petra Faust on 04-15-2023 Albumin [Mass/Vol] 3.7 g/dL 3.2-5.0 [facility] Serum or plasma albumin/glob ulin mass ratioOrdered By: Petra Faust on 04-15-2023 Albumin/Globulin [Mass ratio] 0.9 {ratio} 0.9-2.4 [facility] Serum or plasma calcium anastasiya urement (mass/volume)Ordered By: Petra Faust on 11-15-2023 Calcium [Mass/Vol] 8.9 mg/dL 8.5-10.1 [facility] Serum or plasma cholesterol in HDL measurement (mass/volume)Ordered By: Petra Faust on 04-15-2023 Cholesterol in HDL [Mass/Vol] 69 mg/dL >40 [facility] Comment on above: The drugs N-Acetylcy steine and Metamizole may falsely depress this assay. Reference Range HDL <40 mg/dL Low HDL Cholesterol HDL >or= 60 mg/dL High HDL Cholesterol Serum or plasma cholesterol in VLDL measurement (mass/volume)Ordered By: Petra Faust on 04-15-2023 Cholesterol in VLDL [Mass/Vol] 30 mg/dL 5-40 [facility] Serum or plasma creatinine m easurement (mass/volume)Ordered By: Petra Faust on 04-15-2023 Creatinine [Mass/Vol] 0.81 mg/dL 0.55-1.02 [facility] Comment on above: The validity of the calculated GFR & GFRAA in patients over 70 years has not been determined. Clinical correlation is essential. Serum or plasma low density lipoprotein (LDL) cholesterol measurement (mass/volume)Ordered By: Petra Faust on 04-15-2023 Cholesterol in LDL [Mass/Vol] 133 mg/dL 0-130 [facility] Serum or plasma urea nitroge n measurement (mass/volume)Ordered By: Petra Faust on 04-15-2023 Urea nitrogen [Mass/Vol] 22 mg/dL 7-18 [facility] Thin prep Papanicolaou smear with manual screeningOrdered By: Petra Faust on 04-15-2023 Thin prep Papanicolaou smear with manual screening 25 U/L 15-37 [facility] Thin prep Papanicolaou smear with manual screening 5 5-15 [facility] Basophil percentageon 2021 Chloride [Moles/Vol] 103 mmol/L 98-107 [facility] Work Phone: Glucose [Mass/Vol] 109 mg/dL 74-106 [facility] Work Phone: Comment on above: Fasting Glucose resu lt from 100 to 125 mg/dL suggests IMPAIRED HOMEOSTASIS per A.D.A. criteria. Potassium [Moles/Vol] 3.9 mmol/L 3.5-5.1 [facility] Work Phone: Sodium [Moles/Vol] 138 mmol/L 136-145 [facility] Work Phone: Laboratory - Chemistry and C hemistry - challengeon 04-11-2022 CO2 [Moles/Vol] 26.0 mmol/L 21.0-32.0 [facility] Work Phone: Urea nitrogen/Creatinine [Mass ratio] 27.9 mg/mg 10- [facility] Work Phone: No Panel Informationon 04-11 Estimated GFR (MDRD) Amer 107 mL/min >60 [facility] Work Phone: Comment on above: GFR Calc Estimated GFR (MDRD) Non-Af Amer 89 mL/min >60 [facility] Work Phone: Comment on above: Non- GFR Calc Serum or plasma calcium anastasiya urement (mass/volume)on 04-11-2022 Calcium [Mass/Vol] 9.6 mg/dL 8.5-10.1 [facility] Work Phone: Serum or plasma creatinine m easurement (mass/volume)on 04-11-2022 Creatinine [Mass/Vol] 0.72 mg/dL 0.55-1.02 [facility] Work Phone: Comment on above: The validity of the calculated GFR & GFRAA in patients over 70 years has not been determined. Clinical correlation is essential. Serum or plasma urea nitroge n measurement (mass/volume)on 04-11-2022 Urea nitrogen [Mass/Vol] 20 mg/dL 7-18 [facility] Work Phone: Thin prep Papanicolaou smear with manual screeningon 04-11-2022 Thin prep Papanicolaou smear with manual screening 9 5-15 [facility] Work Phone: Absolute lymphocyte counton 03-21-2022 Lymphocytes Auto (Unsp spec) [#/Vol] 2.20 10*3/uL 0.83-4.51 [facility] Work Phone: Basophil percentageon 03-21- 2021 Basophils/100 WBC (Bld) 0.5 % 0-1 [facility] Work Phone: Bilirubin [Mass/Vol] 0.70 mg/dL 0.20-1.00 [facility] Work Phone: Comment on above: For patients on eltr ombopag therapy, use of Dimension [place] TBIL is not recommended. Chloride [Moles/Vol] 105 mmol/L 98-107 [facility] Work Phone: Cholesterol [Mass/Vol] 241 mg/dL <200 [facility] Work Phone: Comment on above: <200 mg/dL Desirable 200-240 mg/dL Borderline >240 mg/dL High Risk Eosinophils/100 WBC (Bld) 3.7 % 0-5 [facility] Work Phone: Glucose [Mass/Vol] 101 mg/dL 74-106 [facility] Work Phone: Comment on above: Fasting Glucose resu lt from 100 to 125 mg/dL suggests IMPAIRED HOMEOSTASIS per A.D.A. criteria. Neutrophils (Bld) [#/Vol] 4.5 10*3/uL 2.0-7.7 [facility] Work Phone: Neutrophils/100 WBC (Bld) 59.1 % 47-70 [facility] Work Phone: Potassium [Moles/Vol] 4.4 mmol/L 3.5-5.1 [facility] Work Phone: Protein [Mass/Vol] 8.1 g/dL 6.4-8.2 [facility] Work Phone: Sodium [Moles/Vol] 138 mmol/L 136-145 [facility] Work Phone: Triglyceride [Mass/Vol] 71 mg/dL <199 [facility] Work Phone: Comment on above: The drugs N-Acetylcy steine and Metamizole may falsely depress this assay.Serum Triglycerides Reference Interval Normal <150 mg/dL Borderline high 150 - 199 mg/dL High 200 - 499 mg/dL Very High > or = 500 mg/dL WBC (Bld) [#/Vol] 7.6 10*3/uL 4.4-11.0 [facility] Work Phone: Blood erythrocytes count (nu mber/volume)on 03-21-2022 RBC (Bld) [#/Vol] 4.95 10*6/uL 4.2-5.4 [facility] Work Phone: Blood hemoglobin measurement (mass/volume)on 03-21-2022 Hemoglobin (Bld) [Mass/Vol] 15.2 g/dL 12.0-15.0 [facility] Work Phone: Blood lymphocytes/100 leukoc yteson 03-21-2022 Lymphocytes/100 WBC (Bld) 29.1 % 19-41 [facility] Work Phone: Blood monocytes/100 leukocyt eson 03-21-2022 Monocytes/100 WBC (Bld) 7.3 % 0-10 [facility] Work Phone: Blood platelet mean volumeon 03-21-2022 Platelet mean volume (Bld) [Entitic vol] 11.6 fL 6.2-12.0 [facility] Work Phone: Determination of erythrocyte mean corpuscular volume (MCV)on 03-21-2022 MCV (RBC) [Entitic vol] 93.3 fL 81-99 [facility] Work Phone: Hematocrit Auto (Bld) [Volum e fraction]on 03-21-2022 Hematocrit (Bld) [Volume fraction] 46.2 % 37-47 [facility] Work Phone: Laboratory - Chemistry and C hemistry - challengeon 03-21-2022 ALP [Catalytic activity/Vol] 105 U/L 45-117 [facility] Work Phone: ALT [Catalytic activity/Vol] 34 U/L 13-56 [facility] Work Phone: CO2 [Moles/Vol] 27.0 mmol/L 21.0-32.0 [facility] Work Phone: Globulin (S) [Mass/Vol] 4.0 g/dL 2.2-4.2 [facility] Work Phone: Urea nitrogen/Creatinine [Mass ratio] 22.5 mg/mg 10-20 [facility] Work Phone: Laboratory - Hematology and Cell countson 03-21-2022 Erythrocyte distribution width (RBC) [Entitic vol] 42.8 fL 35.1-43.9 [facility] Work Phone: Erythrocyte distribution width (RBC) [Ratio] 12.4 % 11.6-14.6 [facility] Work Phone: Immature granulocytes/100 WBC (Bld) 0.300 % 0.0-0.9 [facility] Work Phone: Comment on above: IG% - Immature Granu locytes (promyelocytes, myelocytes and metamyelocytes) > 1% indicates that a LEFT SHIFT is Present. MCH (RBC) [Entitic mass] 30.7 pg 27.0-32.0 [facility] Work Phone: Nucleated RBC/100 WBC (Bld) [Ratio] 0 % 0-5 [facility] Work Phone: MCHC Auto (RBC) [Mass/Vol]on 03-21-2022 MCHC (RBC) [Mass/Vol] 32.9 g/dL 32-36 [facility] Work Phone: No Panel Informationon 03-21 Estimated GFR (MDRD) Amer 89 mL/min >60 [facility] Work Phone: Comment on above: GFR Calc Estimated GFR (MDRD) Non-Af Amer 73 mL/min >60 [facility] Work Phone: Comment on above: Non- GFR Calc Thyroid Stimulating Hormone (TSH) 1.16 uIU/mL 0.358-3.74 [facility] Work Phone: Vitamin D 25-Hydroxy 28.7 ng/mL [facility] Work Phone: Comment on above: Vitamin D 25(OH) Sta tus Range Deficiency <20 ng/mL (50nmol/L) Insufficiency 20 - 30 ng/mL (50 - 75 nmol/L) Sufficiency 30 - 100 ng/mL (75 - 250 nmol/L) Toxicity >100 ng/mL (>250 nmol/L) Platelets bldon 03-21-2022 Platelets (Bld) [#/Vol] 288 10*3/uL 150-450 [facility] Work Phone: Serum or plasma albumin anastasiya urement (mass/volume)on 03-21-2022 Albumin [Mass/Vol] 4.1 g/dL 3.2-5.0 [facility] Work Phone: Serum or plasma albumin/glob ulin mass ratioon 03-21-2022 Albumin/Globulin [Mass ratio] 1.0 {ratio} 0.9-2.4 [facility] Work Phone: Serum or plasma calcium anastasiya urement (mass/volume)on 03-21-2022 Calcium [Mass/Vol] 9.3 mg/dL 8.5-10.1 [facility] Work Phone: Serum or plasma cholesterol in HDL measurement (mass/volume)on 03-21-2022 Cholesterol in HDL [Mass/Vol] 79 mg/dL >40 [facility] Work Phone: Comment on above: The drugs N-Acetylcy steine and Metamizole may falsely depress this assay. Reference Range HDL <40 mg/dL Low HDL Cholesterol HDL >or= 60 mg/dL High HDL Cholesterol Serum or plasma cholesterol in VLDL measurement (mass/volume)on 03-21-2022 Cholesterol in VLDL [Mass/Vol] 14 mg/dL 5-40 [facility] Work Phone: Serum or plasma creatinine m easurement (mass/volume)on 03-21-2022 Creatinine [Mass/Vol] 0.84 mg/dL 0.55-1.02 [facility] Work Phone: Comment on above: The validity of the calculated GFR & GFRAA in patients over 70 years has not been determined. Clinical correlation is essential. Serum or plasma low density lipoprotein (LDL) cholesterol measurement (mass/volume)on 03-21-2022 Cholesterol in LDL [Mass/Vol] 148 mg/dL 0-130 [facility] Work Phone: Serum or plasma urea nitroge n measurement (mass/volume)on 03-21-2022 Urea nitrogen [Mass/Vol] 19 mg/dL 7-18 [facility] Work Phone: Thin prep Papanicolaou smear with manual screeningon 03-21-2022 Thin prep Papanicolaou smear with manual screening 21 U/L 15-37 [facility] Work Phone: Thin prep Papanicolaou smear with manual screening 6 5-15 [facility] Work Phone: Whole blood hemoglobin A1c/t otal hemoglobin ratio (mass fraction)on 03-21-2022 HbA1c (Bld) [Mass fraction] 5.4 % 3.8-5.6 [facility] Work Phone: Comment on above: Normal < 5.7 % Predi abetic 5.7 - 6.4 % Diabetic >or= 6.5 % Please note range changes. Lab Report: PAP I-G HPV Hi R iskon 02-05-2017 GE use only - for [employer] import when terms are not otherwise specified Negative Invalid Interpretation Code Negative [facility] Office Visit: est obon 01-29 Documentation of current medications (procedure) Done Invalid Interpretation Code [facility] Fall risk assessment No Invalid Interpretation Code [facility] Hemoglobin presence in stool not done Invalid Interpretation Code [facility] Tobacco smoking status NHIS Never Invalid Interpretation Code [facility] Tobacco use CPHS Never smoker Invalid Interpretation Code [facility] 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 María Murray Work Phone: [facility] 04-16-2023 08:26-0500 Body mass index (BMI) [Ratio] 34.7 kg/m2 Dr. María Murray Work Phone: [facility] 04-16-2023 08:26-0500 Body weight 89.[address] María Murray Work Phone: [facility] 04-16-2023 08:26-0500 Diastolic blood pressure 86 mm[Hg] Dr. María Murray Work Phone: [facility] 04-16-2023 08:26-0500 Systolic blood pressure 129 mm[Hg] Dr. María Murray Work Phone: [facility] 09-11-2022 15:33-0400 Body height 160.[address] María Murray Work Phone: [facility] 09-11-2022 15:33-0400 Body mass index (BMI) [Ratio] 34.7 kg/m2 Dr. María Murray Work Phone: [facility] 09-11-2022 15:33-0400 Body temperature 98.5 [degF] Dr. María Murray Work Phone: [facility] 09-11-2022 15:33-0400 Body weight 88.[address] María Murray Work Phone: [facility] 09-11-2022 15:33-0400 Diastolic blood pressure 76 mm[Hg] Dr. María Murray Work Phone: [facility] 09-11-2022 15:33-0400 Heart rate 66 /min Dr. María Murray Work Phone: [facility] 09-11-2022 15:33-0400 Respiratory rate 12 /min Dr. María Murray Work Phone: [facility] 09-11-2022 15:33-0400 SaO2% (BldA) [Mass fraction] 97 % Dr. María Murray Work Phone: [facility] 09-11-2022 15:33-0400 Systolic blood pressure 122 mm[Hg] Dr. María Murray Work Phone: [facility] 09-05-2022 13:15-0400 Body height 161.[address] María Murray Work Phone: [facility] 09-05-2022 13:15-0400 Body mass index (BMI) [Ratio] 34.2 kg/m2 Dr. María Murray Work Phone: [facility] 09-05-2022 13:15-0400 Body temperature 96.8 [degF] Dr. María Murray Work Phone: [facility] 09-05-2022 13:15-0400 Body weight 89.[address] María Murray Work Phone: [facility] 09-05-2022 13:15-0400 Diastolic blood pressure 84 mm[Hg] Dr. María Murray Work Phone: [facility] 09-05-2022 13:15-0400 Heart rate 80 /min Dr. María Murray Work Phone: [facility] 09-05-2022 13:15-0400 Respiratory rate 18 /min Dr. María Murray Work Phone: [facility] 09-05-2022 13:15-0400 SaO2% (BldA) [Mass fraction] 98 % Dr. María Murray Work Phone: [facility] 09-05-2022 13:15-0400 Systolic blood pressure 138 mm[Hg] Dr. María Murray Work Phone: [facility] 08-07-2022 09:05-0500 Body mass index (BMI) [Ratio] 34.2 kg/m2 Dr. María Murray Work Phone: [facility] 08-07-2022 09:05-0500 Body temperature 97.7 [degF] Dr. María Murray Work Phone: [facility] 08-07-2022 09:05-0500 Body weight 89.[address] María Murray Work Phone: [facility] 08-07-2022 09:05-0500 Diastolic blood pressure 84 mm[Hg] Dr. María Murray Work Phone: [facility] 08-07-2022 09:05-0500 Heart rate 83 /min Dr. María Murray Work Phone: [facility] 08-07-2022 09:05-0500 Respiratory rate 18 /min Dr. María Murray Work Phone: [facility] 08-07-2022 09:05-0500 SaO2% (BldA) [Mass fraction] 98 % Dr. María Murray Work Phone: [facility] 08-07-2022 09:05-0500 Systolic blood pressure 144 mm[Hg] Dr. María Murray Work Phone: [facility] 04-14-2022 08:42-0500 Body height 161.[address] María Murray Work Phone: [facility] Work Phone: 04-14-2022 08:41-0500 Body mass index (BMI) [Ratio] 27 kg/m2 Dr. María Murray Work Phone: [facility] Work Phone: 04-14-2022 08:41-0500 Body weight [address] María Murray Work Phone: [facility] Work Phone: 04-14-2022 08:41-0500 Diastolic blood pressure 83 mm[Hg] Dr. María Murray Work Phone: [facility] Work Phone: 04-14-2022 08:41-0500 Systolic blood pressure 148 mm[Hg] Dr. María Murray Work Phone: [facility] Work Phone: 03-19-2022 15:10-0400 Body height 161.[address] María Murray Work Phone: [facility] Work Phone: 03-19-2022 15:10-0400 Body mass index (BMI) [Ratio] 32.8 kg/m2 Dr. María Murray Work Phone: [facility] Work Phone: 03-19-2022 15:10-0400 Body temperature 97.7 [degF] Dr. María Murray Work Phone: [facility] Work Phone: 03-19-2022 15:10-0400 Body weight 85.[address] María Murray Work Phone: [facility] Work Phone: 03-19-2022 15:10-0400 Diastolic blood pressure 108 mm[Hg] Dr. María Murray Work Phone: [facility] Work Phone: 03-19-2022 15:10-0400 Heart rate 75 /min Dr. María Murray Work Phone: [facility] Work Phone: 03-19-2022 15:10-0400 Respiratory rate 16 /min Dr. María Murray Work Phone: [facility] Work Phone: 03-19-2022 15:10-0400 SaO2% (BldA) [Mass fraction] 96 % Dr. María Murray Work Phone: [facility] Work Phone: 03-19-2022 15:10-0400 Systolic blood pressure 140 mm[Hg] Dr. María Murray Work Phone: [facility] Work Phone: 01-29-2017 13:52-0400 BMI (Body Mass Index) 34.1 kg/m2 Petra Faust MD [facility] 01-29-2017 13:52-0400 Body Temperature 96.5 [degF] Petra Faust MD [facility] 01-29-2017 13:52-0400 Body Temperature 96.49 [degF] Petra Faust MD [facility] 01-29-2017 13:52-0400 BP Diastolic 81 mm[Hg] Petra Faust MD [facility] 01-29-2017 13:52-0400 BP Systolic 130 mm[Hg] Petra Faust MD [facility] 01-29-2017 13:52-0400 Height 161.29 cm Petra Faust MD [facility] 01-29-2017 13:52-0400 Pulse (Heart Rate) 62 /min Petra Faust MD [facility] 01-29-2017 13:52-0400 Respiratory Rate 16 /min Petra Faust MD [facility] 01-29-2017 13:52-0400 Weight 88.72 kg Petra Faust MD [facility] [place] Encounters Encounter Date Encounter Type Care Provider Facility Start: 04-25-2024 End: 04-25-2024 ambulatory Jose Miguel Meyers [facility] Facility:[facility] Start: 04-20-2024 Encounter for gynecological examination (general) (routine) without abnormal findings Petra Faust [facility] Start: 04-20-2024 End: 04-20-2024 ambulatory Jose Miguel Meyers [facility] Facility:[facility] Start: 01-14-2024 Encounter for other preprocedural examination Jose Miguel Meyers [facility] Start: 12-23-2023 End: 12-23-2023 ambulatory Jose Miguel Meyers [facility] Facility:[facility] Start: 12-22-2023 End: 12-22-2023 ambulatory Jose Miguel Meyers [facility] Facility:[facility] Start: 04-16-2023 End: 04-16-[address] María Murray Work Phone: [facility] [place] Work Phone: Start: 04-15-2023 End: 04-15-[address] María Murray Work Phone: [facility] Work Phone: Start: 04-15-2023 End: 04-15-[address] María Murray Work Phone: [facility] Work Phone: Start: 09-16-2022 End: 09-16-[address] María Murray Work Phone: [facility] Work Phone: Start: 09-16-2022 End: 09-16-[address] María Murray Work Phone: [facility]-Outpatient Bone Densitometry Start: 09-11-2022 End: 09-11-[address] María Murray Work Phone: [facility] Start: 09-05-2022 End: 09-05-[address] María Murray Work Phone: [facility] Start: 09-02-2022 End: 09-02-[address] María Murray Work Phone: [facility] Work Phone: Start: 09-02-2022 End: 09-02-[address] María Murray Work Phone: [facility] Start: 08-07-2022 End: 08-07-[address] María Murray Work Phone: [facility] Start: 04-14-2022 End: 04-14-[address] María Murray Work Phone: [facility] Start: 04-14-2022 End: 04-14-[address] María Murray Work Phone: [facility] Work Phone: Start: 04-14-2022 End: 04-14-[address] María Murray Work Phone: [facility] Breast [facility] Start: 04-11-2022 End: 04-11-[address] María Murray Work Phone: [facility] Work Phone: Start: 04-11-2022 End: 04-11-[address] María Murray Work Phone: [facility], [facility] Start: 03-21-2022 End: 03-21-[address] María Murray Work Phone: [facility] Work Phone: Start: 03-21-2022 End: 03-21-[address] María Murray Work Phone: [facility], [place] Start: 03-19-2022 End: 03-19-2022 Encounter for general adult medical examination without abnormal findings Dr. María Murray Work Phone: [facility] Start: 03-19-2022 End: 03-19-[address] María Murray Work Phone: [facility] Internal [facility] Procedures Date Procedure [...] Author Start: 01-29-2017 End: 01-29-2017 Appointment Appointment [facility] Start: 01-29-2017 End: 02-02-2017 Mammogram, screening Mammogram, Screening, both breasts [facility] DXA Bone [Mass/Area] Bone density [facility] XR Ribs GE 3 Views a nd Chest PA [facility] Immunizations Immunization Date Immunization Notes Care Provider Fa cility 03-19-2022 influenza, injectabl e, quadrivalent, preservative free Dr. María Murray Work Phone: [facility] 03-19-2022 influenza, seasonal, injectable Dr. María Murray Work Phone: [facility] 03-29-2020 influenza, injectable,quadrivalent , preservative free, pediatric Dr. María Murray Work Phone: [facility] Payers Date Payer Category Payer Self-pay [id number] 2023 Unknown [id number] Unknown [facility] [id number] Unknown [employer] P[employer] [id number] Unknown [facility] PACKAGE PLAN [id number] Unknown [id number] Unknown [id number] Unknown [id number] Unknown [id number] Social History Date Type Detail Facility Start: 03-19-2022 End: 04-16-2023 Tobacco smoking status NHIS Unknown if ever smoked [facility] Start: 1965 Sex Assigned At Female [facility] Evaluation note Note Date & Type Note Facility Evaluation note Diagnosis Onset Date Climacteric acute Hypertension chronic Preventative health care non eactive [facility] Work Phone: Evaluation note Note Date & Type Note Facility Evaluation note Diagnosis Onset Date Climacteric acute Hypertension chronic Preventative health care non eactive Encounter for routine gyneco logical examination noneactive [facility] Work Phone: Evaluation note Note Date & Type Note Facility Evaluation note Diagnosis Onset Date Seasonal allergies acute HTN (hypertension) chronic Obesity (BMI 30.0-34.9) none active Left rib fracture noneactive Acute bronchitis noneactive [facility] Work Phone: Evaluation note Note Date & Type Note Facility Evaluation note Diagnosis Onset Date Seasonal allergies acute HTN (hypertension) chronic Obesity (BMI 30.0-34.9) none active Left rib fracture noneactive Acute bronchitis noneactive Left rib fracture noneactive Acute bronchitis noneactive [facility] Work Phone: Evaluation note Note Date & Type Note Facility Evaluation note Diagnosis Onset Date Climacteric acute Decreased libido acute Encounter for routine gyneco logical examination noneactive [facility] Work Phone: Chief Complaint and Reason for Visit Chief Complaint YEARLY PHYSICAL Reason for Visit Climacteric Hypertension Preventative health care Chief Complaint YEARLY PHYSICAL 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 María Murray MD Primary Care Provider Active Jose Miguel Meyers NP, REEFER ENGINEER-C Attending Provider, Referring Prov ider Active Team Status: Active Member Role Status Dates Dr. María Murray MD Family Provider Active Jose Miguel Meyers REEFER ENGINEER, REEFER ENGINEER-C Primary Care Provider Active Team Status: Inactive Member Role Status Dates Dr. María Murray MD Referring Provider Active Jose Miguel Meyers REEFER ENGINEER, REEFER ENGINEER-C Primary Care Provider, Attending P sarah Active Team Status: Inactive Member Role Status Dates Jose Miguel Meyers REEFER ENGINEER, REEFER ENGINEER-C Primary Care Provide r, Attending Provider, Referring Provider Active Team Status: Inactive Member Role Status Dates Dr. María Murray MD Referring Provider Active Dr. Petra Faust MD Attending Provider Active Jose Miguel Meyers REEFER ENGINEER, REEFER ENGINEER-C Primary Care Provider Active Team Status: Inactive Member Role Status Dates Jose Miguel Meyers NP, REEFER ENGINEER-C Primary Care Provider Active Dr. Petra Faust MD Attending Provider, Referr ing Provider Active INFORMATION SOURCE (unrecogn ized section and content) DATE CREATED AUTHOR 05/04/2024 [facility] FOR RECORDS PERTAINING TO PATIENTS WHO ARE [...] BE BASED ON THE PRIMARY CLINICAL RECORDS. [employer] [facility]. provides no warranty or guarantee of the accuracy or completeness of information in this document.
== END | disposition home or self-care (01) ==
LOC: VSLAB 10:05
PROVIDERS: PCP Nurse Practitioner Family; Visit Provider Nurse Practitioner Family
DX: I10 Essential (primary) hypertension (principal)
CPT/HCPCS: 36415; 80053; 80061; 81002; 82306; 82607; 84443; 85025

== ENCOUNTER → 2024-12-30 | Outpatient (CLI) | payer BC, SELFPAY ==
--- NOTE | 2024-12-30 08:51 | US_ITS ---
PROCEDURE: PELVIC W/ TRANSVAGINAL REASON FOR EXAM: PMB TECHNIQUE: PELVIC W/ TRANSVAGINAL COMPARISON: None FINDINGS: Measurements: Uterus: 7.9 cm x 4.3 cm x 3.1 cm with a volume of 55.69 mL Endometrial Thickness: 4 mm. Slightly thickened for the postmenopausal phase. Right Ovary: Not visualized. Left Ovary: Not visualized TRANSABDOMINAL: Uterus: Multiple fibroids are seen. The largest measures 1.3 cm 1.4 cm x 0.8 cm. Nabothian cyst. Endometrium: Mild degree of endometrial thickening. Right ovary: Not visualized. Left ovary: Not visualized. Other: No large pelvic mass identified. Transvaginal sonography was performed to better visualize the endometrium. TRANSVAGINAL: Uterus: Retroverted. Multiple small fibroids. Endometrium: Measures 4 mm. Slightly thickened for the patient's postmenopausal phase. Right ovary: Not visualized. Left ovary: Not visualized. Other adnexal findings: None. Cul-de-sac: No free intraperitoneal fluid identified. Tenderness: No tenderness US/Pelvic w/ Transvaginal IMPRESSION: Multiple small fibroids. Slight thickening of the endometrium measuring 4 mm for the patient's postmenop ausal phase. Reading Location: [facility]
== END | disposition home or self-care (01) ==
LOC: OPUS 08:47
PROVIDERS: PCP Nurse Practitioner Family; Referring Provider Nurse Practitioner Women's Health; Visit Provider Nurse Practitioner Women's Health
DX: N95.0 Postmenopausal bleeding (principal)
CPT/HCPCS: 76830; 76856

== ENCOUNTER → 2025-01-04 | Outpatient (CLI) | payer BC, SELFPAY ==
--- NOTE | 2025-01-04 09:52 | EMB_PTH ---
PATIENT: FAISAL PRESLEY LOC: [facility]#:[id number] AGE/SX: 60/F ROOM: RE01/04/[address]: JHON Nicholson : 1965 BED: DIS: 01/04/2025 SPEC #: [id number] RECD: 01/04/25 12:17 STATUS: FELICIANO PEYTON #: [id number] DU: 01/04/25 09:[address]: Leslie Goodman NP DEPT: SURGICAL PATHOLOGY RECD BY: Maxwell Almendarez ENTERED: 01/04/25 13:38 SP TYPE: ENDOM BX/C OT DR: JHON Fontenot Tissues: A - Endometrium, NOS Procedures: Surgery Specimen Level IV HEADER OPERATION: Endometrial biopsy PRE-OP DIAGNOSIS: Post menopausal bleeding TISSUE SUBMITTED: A- Endometrial lining MICROSCOPIC DIAGNOSIS A. Endometrium, biopsy: * Pieces of endocervical tissue with chronic endocervicitis * Strips of benign squamous epithelium * No endometrial tissue is identified MICROSCOPIC DESCRIPTION Slides are reviewed. GROSS DESCRIPTION A. Received in formalin labeled the patient's name and date of is a 2.5 x 1.7 x 0.1 cm aggregate of cloudy mucoid material and flecks of possible tissue. Entirely submitted in 1 cassette. RI 01/04/2025 CPT:35750
== END | disposition home or self-care (01) ==
LOC: LABSPEC 11:41
PROVIDERS: PCP Nurse Practitioner Family; Visit Provider Nurse Practitioner Women's Health
DX: N95.0 Postmenopausal bleeding (principal)
CPT/HCPCS: 88305

== ENCOUNTER → 2025-05-02 | Outpatient (CLI) | payer BC, SELFPAY ==
--- NOTE | 2025-05-02 16:15 | BI_ITS ---
EXAM: SCRN MAMM (CAD)W/ROSIE BILAT DATE: 05/02/2025 CLINICAL HISTORY: F, Age 60 y/o , SCREENING No family history. TECHNIQUE: Procedure Code: [id number] Modality: MG Procedure: SCRN MAMM (CAD)W/ROSIE BILAT COMPARISON: Prior exam(s) dated April 25, 2024.. FINDINGS: TISSUE DENSITY: The breasts are extremely dense, which lowers the sensitivity of mammography. Bilateral Breast Mammographic Findings: No significant masses, calcifications or other abnormalities are identified. No suspicious masses, areas of developing architectural distortion, or suspicious calcifications. There has been no significant interval change. BI/SCRN MAMM (CAD)W/ROSIE BILAT IMPRESSION: Stable bilateral screening mammogram. OVERALL FINAL ASSESSMENT BI-RADS 1: NEGATIVE. RECOMMENDATION: Routine annual follow-up in 1 Year Additional Recommendation none A letter with findings and recommendations will be mailed to the patient. Reading Location: [place] [id number]
== END | disposition home or self-care (01) ==
PROVIDERS: PCP Nurse Practitioner Family; Referring Provider Nurse Practitioner Women's Health; Visit Provider Nurse Practitioner Women's Health
DX: Z12.31 Encounter for screening mammogram for malignant neoplasm of breast (principal)
CPT/HCPCS: 77063; 77067